=== PATIENT | male | born 1955 | race Caucasian/White ===

== ENCOUNTER → 2017-12-16 | Outpatient (CLI) | payer OTHER ==
[~2017-12-16] MED LIST: CARV6.25 PO; COLCRYS0.6 MG PO; COMBIVENT RESPIM4 GM INH; Cleocin HCl150 MG PO; FURO20 PO; HYDACE10B PO; HYDACE5 PO; HYDR1TAB94; HYDROCODONE-IB1 EAC1 PO; LEVO750 PO; LOSA50; LOSARTAN POTAS100 MG PO; MICONAZOLE TOP; OMEP10ER PO; OMEP20ER PO; ONE DAILY FOR1 EAC1 PO; OXAP600 PO; POTCHL10ER PO; PRAM.125 PO; PROACE100; PROACE100 PO; PRODEXEL PO; Percocet 5-3251 EACH PO; TRAM50 PO; Zithromax250 MG PO
[2017-12-16 18:25] LABS: BASOPHILS ABSOLUTE AUTO 0.03 K/mm3 (0.00-0.23); BASOPHILS PERCENT AUTO 0 % (0-2); EOSINOPHILS ABSOLUTE AUTO 0.02 K/mm3 (0.00-0.68); EOSINOPHILS PERCENT AUTO 0 % (0-6); Hematocrit 42.3 % (37.0-53.0); Hemoglobin 13.9 g/dL (13.5-17.5); IMMATURE GRAN ABSOLUTE AUTO 0.05 K/mm3 (0.00-0.10); IMMATURE GRAN PERCENT AUTO 1 % (0-1); LYMPHOCYTES PERCENT AUTO 11 % (21-46); MONOCYTES ABSOLUTE AUTO 0.42 K/mm3 (0.16-1.47); MONOCYTES PERCENT AUTO 4 % (4-13); Mean Corpuscular HGB 28.2 pg (26.0-34.0); Mean Corpuscular HGB Conc 32.9 g/dL (31.5-36.5); Mean Corpuscular Volume 86 fL (80-100); NEUTROPHILS ABSOLUTE AUTO 8.08 K/mm3 (1.96-9.15); NEUTROPHILS PERCENT AUTO 83 % (41-73); Platelet Count 298 K/mm3 (150-400); RDW Coefficient Variation 15.4 % (11.7-14.2); Red Blood Cell Count 4.93 M/mm3 (4.30-5.90)
[2017-12-16 18:38] LABS: Alanine Aminotransfer (ALT/SGP 37 U/L (12-78); Albumin, Blood 3.5 g/dL (3.4-5.0); Albumin/Globulin Ratio 0.8 (0.8-1.8); Alk Phos 115 U/L (40-126); Anion Gap 9 mmol/L (6-16); Aspartate Aminotrans (AST/SGOT 24 U/L (12-37); Bilirubin, Total 0.4 mg/dL (0.1-1.0); Blood Urea Nitrogen 18 mg/dL (8-24); Bun/Creatinine Ratio 17.6 (12.0-20.0); CO2, Blood 28 mmol/L (21-32); Calcium, Blood 9.3 mg/dL (8.5-10.1); Chloride, Blood 102 mmol/L (98-108); Creatinine, Blood 1.02 mg/dL (0.60-1.20); Globulin, Blood 4.2 g/dL (2.2-4.0); Glomerular Filtration Rate >60 (60-); Glucose, Blood 161 mg/dL (70-99); Sodium, Blood 139 mmol/L (136-145); Total Protein, Blood 7.7 g/dL (6.4-8.2)
== END ==
LOC: LAB SHORT 18:22 → LAB EV 18:22
PROVIDERS: Family Medicine
DX: I50.9 Heart failure, unspecified (principal)
CPT/HCPCS: 80053; 83880; 85025

== ENCOUNTER → 2018-02-18 | Outpatient (CLI) | payer OTHER ==
[2018-02-18 17:35] LABS: BASOPHILS ABSOLUTE AUTO 0.06 K/mm3 (0.00-0.23); BASOPHILS PERCENT AUTO 1 % (0-2); EOSINOPHILS PERCENT AUTO 3 % (0-6); Hematocrit 43.8 % (37.0-53.0); Hemoglobin 14.5 g/dL (13.5-17.5); IMMATURE GRAN ABSOLUTE AUTO 0.04 K/mm3 (0.00-0.10); IMMATURE GRAN PERCENT AUTO 0 % (0-1); LYMPHOCYTES ABSOLUTE AUTO 2.86 K/mm3 (0.84-5.20); LYMPHOCYTES PERCENT AUTO 24 % (21-46); MONOCYTES ABSOLUTE AUTO 1.06 K/mm3 (0.16-1.47); MONOCYTES PERCENT AUTO 9 % (4-13); Mean Corpuscular HGB 28.3 pg (26.0-34.0); Mean Corpuscular HGB Conc 33.1 g/dL (31.5-36.5); Mean Corpuscular Volume 85 fL (80-100); Mean Platelet Volume 10.5 fL (9.1-12.4); NEUTROPHILS ABSOLUTE AUTO 7.73 K/mm3 (1.96-9.15); NEUTROPHILS PERCENT AUTO 64 % (41-73); Platelet Count 318 K/mm3 (150-400); RDW Coefficient Variation 15.8 % (11.7-14.2); RDW Standard Deviation 49.1 fL (35.1-46.3); Red Blood Cell Count 5.13 M/mm3 (4.30-5.90); White Blood Cell Count 12.05 K/mm3 (4.00-11.30)
[2018-02-18 17:50] LABS: Alanine Aminotransfer (ALT/SGP 25 U/L (12-78); Albumin, Blood 3.6 g/dL (3.4-5.0); Albumin/Globulin Ratio 0.8 (0.8-1.8); Alk Phos 112 U/L (40-126); Anion Gap 13 mmol/L (6-16); Aspartate Aminotrans (AST/SGOT 26 U/L (12-37); Bilirubin, Total 0.4 mg/dL (0.1-1.0); Blood Urea Nitrogen 25 mg/dL (8-24); CO2, Blood 28 mmol/L (21-32); CPK Creatine Kinase 181 U/L (39-308); Calcium, Blood 9.4 mg/dL (8.5-10.1); Chloride, Blood 99 mmol/L (98-108); Creatinine, Blood 1.79 mg/dL (0.60-1.20); Globulin, Blood 4.7 g/dL (2.2-4.0); Glomerular Filtration Rate 39 (60-); Glucose, Blood 87 mg/dL (70-99); Magnesium, Blood 1.4 mg/dL (1.6-2.4); Potassium, Blood 4.3 mmol/L (3.5-5.5); Sodium, Blood 140 mmol/L (136-145); Total Protein, Blood 8.3 g/dL (6.4-8.2)
[2018-02-18 17:51] LABS: Troponin I <0.017 ng/mL (0.000-0.040)
== END ==
LOC: LAB SHORT 17:31 → LAB EV 17:31
PROVIDERS: Physician Assistant Medical
DX: R07.9 Chest pain, unspecified (principal); R25.2 Cramp and spasm
CPT/HCPCS: 80053; 82550; 83735; 83880; 84484; 85025

== ENCOUNTER 2019-02-13 12:54 | Emergency (ER) | payer OTHER ==
[~2019-02-13] VITALS: Ht 208.3 cm; Wt 152.9 kg
[2019-02-13 13:30] LABS: BASOPHILS ABSOLUTE AUTO 0.04 K/mm3 (0.00-0.23); BASOPHILS PERCENT AUTO 0 % (0-2); EOSINOPHILS ABSOLUTE AUTO 0.23 K/mm3 (0.00-0.68); EOSINOPHILS PERCENT AUTO 2 % (0-6); Hematocrit 43.3 % (37.0-53.0); Hemoglobin 14.1 g/dL (13.5-17.5); IMMATURE GRAN ABSOLUTE AUTO 0.07 K/mm3 (0.00-0.10); IMMATURE GRAN PERCENT AUTO 1 % (0-1); LYMPHOCYTES ABSOLUTE AUTO 1.86 K/mm3 (0.84-5.20); LYMPHOCYTES PERCENT AUTO 16 % (21-46); MONOCYTES ABSOLUTE AUTO 0.63 K/mm3 (0.16-1.47); MONOCYTES PERCENT AUTO 5 % (4-13); Mean Corpuscular HGB Conc 32.6 g/dL (31.5-36.5); Mean Corpuscular Volume 92 fL (80-100); Mean Platelet Volume 10.5 fL (9.1-12.4); NEUTROPHILS ABSOLUTE AUTO 8.97 K/mm3 (1.96-9.15); NEUTROPHILS PERCENT AUTO 76 % (41-73); Platelet Count 263 K/mm3 (150-400); RDW Coefficient Variation 14.7 % (11.7-14.2); RDW Standard Deviation 50.3 fL (35.1-46.3)
[2019-02-13 14:15] LABS: Alanine Aminotransfer (ALT/SGP 57 U/L (12-78); Albumin, Blood 3.1 g/dL (3.4-5.0); Albumin/Globulin Ratio 0.6 (0.8-1.8); Alk Phos 167 U/L (50-136); Anion Gap 7 mmol/L (6-16); Aspartate Aminotrans (AST/SGOT 79 U/L (12-37); Bilirubin, Total 0.7 mg/dL (0.1-1.0); Blood Urea Nitrogen 17 mg/dL (8-24); Bun/Creatinine Ratio 18.7 (12.0-20.0); CO2, Blood 28 mmol/L (21-32); Chloride, Blood 103 mmol/L (98-108); Creatinine, Blood 0.91 mg/dL (0.60-1.20); Glomerular Filtration Rate >60 (60-); Glucose, Blood 132 mg/dL (70-99); Potassium, Blood 3.9 mmol/L (3.5-5.5); Sodium, Blood 138 mmol/L (136-145); Total Protein, Blood 8.1 g/dL (6.4-8.2)
[2019-02-13] MEDS ORDERED: PROM25 PO (14:40)
[2019-02-13] MEDS ORDERED: Norco 5-325 Ta1 EACH PO (14:40)
[2019-02-17] MEDS ORDERED: [UNRECOGNIZED DRUG - CODE] PO (16:29)
[2019-02-17] MEDS ORDERED: FURO20 PO (16:32)
[2019-02-17] MEDS ORDERED: METO100ER PO (16:32)
[2019-02-17] MEDS ORDERED: SERT50 PO (16:32)
[2019-02-17] MEDS ORDERED: MAGNESIUM PO (16:33)
[2019-02-17] MEDS ORDERED: OMEPRAZOLE20 MG PO (16:33)
[2019-02-17] MEDS ORDERED: ALLO300 PO (16:34)
[2019-02-17] MEDS ORDERED: PROM25 PO (16:36)
== END 2019-02-13 14:57 | disposition home or self-care (01) ==
LOC: ER 12:54
PROVIDERS: Physician Assistant
DX: K29.70 Gastritis, unspecified, without bleeding (principal); K27.9 Peptic ulcer, site unspecified, unspecified as acute or chronic, without hemorrhage or perforation; K21.9 Gastro-esophageal reflux disease without esophagitis; I10 Essential (primary) hypertension; E66.9 Obesity, unspecified; Z87.891 Personal history of nicotine dependence
CPT/HCPCS: 36415; 74177; 80053; 83690; 85025; 99284-25; Q9967

== ENCOUNTER 2019-02-24 13:56 | Inpatient (IN) | payer OTHER ==
[~2019-02-24] VITALS: Ht 177.8 cm; Wt 152.3 kg
[~2019-02-24 13:56] MED LIST changes: +ALLO300 PT; +MAGOXI400 PO; +METO100ER PO; +Norco 5-325 Ta1 EACH PO; +OMEPRAZOLE20 MG PO; +PROM25 PO; +SERT50 PO; +[UNRECOGNIZED DRUG - CODE] PO
[2019-02-24 14:48] LABS: BASOPHILS ABSOLUTE AUTO 0.04 K/mm3 (0.00-0.23); BASOPHILS PERCENT AUTO 0 % (0-2); EOSINOPHILS ABSOLUTE AUTO 0.15 K/mm3 (0.00-0.68); EOSINOPHILS PERCENT AUTO 2 % (0-6); Hematocrit 41.8 % (37.0-53.0); Hemoglobin 13.8 g/dL (13.5-17.5); IMMATURE GRAN ABSOLUTE AUTO 0.03 K/mm3 (0.00-0.10); IMMATURE GRAN PERCENT AUTO 0 % (0-1); LYMPHOCYTES ABSOLUTE AUTO 1.83 K/mm3 (0.84-5.20); LYMPHOCYTES PERCENT AUTO 18 % (21-46); MONOCYTES ABSOLUTE AUTO 0.78 K/mm3 (0.16-1.47); MONOCYTES PERCENT AUTO 8 % (4-13); Mean Corpuscular HGB 30.5 pg (26.0-34.0); Mean Corpuscular Volume 93 fL (80-100); Mean Platelet Volume 10.6 fL (9.1-12.4); NEUTROPHILS ABSOLUTE AUTO 7.09 K/mm3 (1.96-9.15); NEUTROPHILS PERCENT AUTO 72 % (41-73); Platelet Count 243 K/mm3 (150-400); RDW Coefficient Variation 14.8 % (11.7-14.2); RDW Standard Deviation 50.7 fL (35.1-46.3); Red Blood Cell Count 4.52 M/mm3 (4.30-5.90); White Blood Cell Count 9.92 K/mm3 (4.00-11.30)
[2019-02-24 15:07] LABS: Anion Gap 8 mmol/L (6-16); Blood Urea Nitrogen 14 mg/dL (8-24); Bun/Creatinine Ratio 16.5 (12.0-20.0); CO2, Blood 23 mmol/L (21-32); Calcium, Blood 9.1 mg/dL (8.5-10.1); Chloride, Blood 103 mmol/L (98-108); Creatinine, Blood 0.85 mg/dL (0.60-1.20); Glomerular Filtration Rate >60 (60-); Glucose, Blood 119 mg/dL (70-99); Potassium, Blood 4.1 mmol/L (3.5-5.5); Sodium, Blood 134 mmol/L (136-145)
--- NOTE | 2019-02-24 15:23 | NUR ---
pt was sleeping wakes to sound of voice, denies any needs, will continue to monitor
[2019-02-24] MEDS ORDERED: Norco 10-325 T1 EACH PO (17:40)
[2019-02-24] MEDS ORDERED: SPIR25 PO (17:42)
[2019-02-24] MEDS ORDERED: PANT40 PO (17:44)
[2019-02-24] MEDS ORDERED: TORSE20 PO (17:49)
[2019-02-24] MEDS ORDERED: COLCHICINE0.6 MG PO (17:50)
[2019-02-24 22:11] LABS: Adenovirus Not Detected (NOT DETECT); Bordetella pertussis Not Detected (NOT DETECT); Chlamydophila pneumoniae Not Detected (NOT DETECT); Coronavirus 229E Not Detected (NOT DETECT); Coronavirus HKU1 Not Detected (NOT DETECT); Coronavirus NL63 Not Detected (NOT DETECT); Coronavirus OC43 Not Detected (NOT DETECT); Human Metapneumovirus Not Detected (NOT DETECT); Human Rhinovirus/Enterovirus Not Detected (NOT DETECT); Influenza A Not Detected (NOT DETECT); Influenza A/2009-H1 Not Detected (NOT DETECT); Influenza A/H1 Not Detected (NOT DETECT); Influenza A/H3 Not Detected (NOT DETECT); Influenza B Not Detected (NOT DETECT); Mycoplasma pneumoniae Not Detected (NOT DETECT); Parainfluenza Virus 1 Not Detected (NOT DETECT); Parainfluenza Virus 2 Not Detected (NOT DETECT); Parainfluenza Virus 3 Not Detected (NOT DETECT); Parainfluenza Virus 4 Not Detected (NOT DETECT); Respiratory Syncytial Virus Not Detected (NOT DETECT)
[2019-02-25 05:42] LABS: BASOPHILS ABSOLUTE AUTO 0.04 K/mm3 (0.00-0.23); BASOPHILS PERCENT AUTO 1 % (0-2); EOSINOPHILS ABSOLUTE AUTO 0.19 K/mm3 (0.00-0.68); EOSINOPHILS PERCENT AUTO 3 % (0-6); Hematocrit 37.5 % (37.0-53.0); Hemoglobin 11.9 g/dL (13.5-17.5); IMMATURE GRAN ABSOLUTE AUTO 0.02 K/mm3 (0.00-0.10); IMMATURE GRAN PERCENT AUTO 0 % (0-1); LYMPHOCYTES ABSOLUTE AUTO 1.27 K/mm3 (0.84-5.20); LYMPHOCYTES PERCENT AUTO 16 % (21-46); MONOCYTES ABSOLUTE AUTO 0.63 K/mm3 (0.16-1.47); MONOCYTES PERCENT AUTO 8 % (4-13); Mean Corpuscular HGB 29.9 pg (26.0-34.0); Mean Corpuscular HGB Conc 31.7 g/dL (31.5-36.5); Mean Corpuscular Volume 94 fL (80-100); Mean Platelet Volume 10.9 fL (9.1-12.4); NEUTROPHILS ABSOLUTE AUTO 5.59 K/mm3 (1.96-9.15); NEUTROPHILS PERCENT AUTO 72 % (41-73); Platelet Count 198 K/mm3 (150-400); RDW Coefficient Variation 14.9 % (11.7-14.2); RDW Standard Deviation 51.8 fL (35.1-46.3); Red Blood Cell Count 3.98 M/mm3 (4.30-5.90); White Blood Cell Count 7.74 K/mm3 (4.00-11.30)
[2019-02-25 06:05] LABS: Alanine Aminotransfer (ALT/SGP 47 U/L (12-78); Albumin, Blood 2.6 g/dL (3.4-5.0); Albumin/Globulin Ratio 0.6 (0.8-1.8); Alk Phos 147 U/L (50-136); Anion Gap 7 mmol/L (6-16); Aspartate Aminotrans (AST/SGOT 61 U/L (12-37); Bilirubin, Total 0.7 mg/dL (0.1-1.0); Blood Urea Nitrogen 11 mg/dL (8-24); Bun/Creatinine Ratio 13.8 (12.0-20.0); CO2, Blood 25 mmol/L (21-32); Calcium, Blood 8.5 mg/dL (8.5-10.1); Chloride, Blood 105 mmol/L (98-108); Globulin, Blood 4.5 g/dL (2.2-4.0); Glomerular Filtration Rate >60 (60-); Glucose, Blood 127 mg/dL (70-99); Potassium, Blood 4.2 mmol/L (3.5-5.5); Sodium, Blood 137 mmol/L (136-145); Total Protein, Blood 7.1 g/dL (6.4-8.2)
--- NOTE | 2019-02-25 06:31 | NUR ---
64 Y/O MORBID OBESE MALE RESTED COMFORTABLY IN BED ALL EVENING. PTS RIGHT EYE SCLERA RED WITH SURROUNDING SKIN AROUND ORBITAL RED AND IRRIATED. PTS EYE DRAINING GREEN COLORED SUBSTANCE WITH EYELID CLEANSED WITH SALINE SOAKED TISSUE AND TEAR EYE DROPS APPLIED ORDERED. PT VOICED HE HAVING POOR VISION WITH RIGHT EYE AT MOMENT. PT WAS ABLE TO TURN NECK FROM SIDE TO SIDE (VOICED DIFFICULTY PRIOR TO HOSPITALIZATION). PT WORE BIPAP 3/4 NIGHT WITH SATS AVERAGING 91%. PT MEDICATED WITH NORCO 10/325MG PO X1 FOR RIGHT EYE PAIN RATED 6/10 WITH RELIEF FELT. PT DENIES PAIN. PTS BED LOW POSITION, CALL LIGHT AT SIDE.
--- NOTE | 2019-02-25 19:15 | NUR ---
SHIFT SUMMARY PT SLEEPING MOST OF DAY. DIFFICULT TO ROUSE BUT WOULD AND AFTER A MOMENT WAS ALERT AND APPROPRIATE. CPAP IN ROOM BUT PT COMPLAINED WHEN HE WAS AWAKE THAT IT DIDN'T FIT RIGHT. RT CALLED AND ITEMS CORRECTED. WAS TOLD BLUNTLY THAT HE NEEDED TO USE CPAP EVERY TIME HE GOES TO SLEEP NOT JUST WHEN HE WANTED TO BECAUSE HIS OXIMETRY DROPS TO 50-60'S. AT BEDSIDE MOST OF DAY. UP TO BATHROOM INDEPENDENTLY. TISSUE AROUND R EYE SWOLLEN AND RED AND TENDER TO TOUCH. COMPRESSES APPLIED FOR COMFORT ON AND OFF.
--- NOTE | 2019-02-26 05:46 | NUR ---
SHIFT SUMMARY PT SLEPT WELL THIS EVENING BUT WAS NOT OVERLY LETHARGIC OR DIFFICULT TO WAKE UP. USED CPAP THROUGHOUT THE NIGHT WHEN SLEEPING. REPORTED THAT MASK WAS FITTING MUCH BETTER AND APPEARED EAGER TO CONTINUE COMPLIANCE WITH IT. CONTINUOUS OX ON THROUGHOUT THE NIGHT WITH NO ALARMING. O2 SATS REMAINED IN THE HIGH 90'S. R EYE CONTINUED TO BE SWOLLEN AND RED. PT WAS ABLE TO OPEN EYE BUT NOT COMPLETELY. MODERATE YELLOWISH DISCHARGE. PT USED COLD COMPRESSES FROM COMFORT. MEDICATED X 1 W/ 1 TAB NORCO. VITAL SIGNS STABLE. WILL CONTINUE TO MONITOR.
--- NOTE | 2019-02-26 10:17 | NUR ---
PATIENT WAS OFFERED A SHOWER AND HE DECLINED HE WANTS TO WAIT UNTIL HIS SHOWS UP THIS AFTERNOON. WILL OFFER AGAIN IF I SEE HIS PRESENT.
--- NOTE | 2019-02-26 19:10 | NUR ---
shift summary pt independent in room. at bedside this afternoon. used cpap more consistantly today than yesterday. more awake as well. swelling to eye less than yesterday but still remains very red.
--- NOTE | 2019-02-27 04:16 | NUR ---
SHIFT SUMMARY NO ACUTE CHANGES THIS SHIFT. PT'S EYE CONTINUES TO BE RED AND SWOLLEN BUT SHOWING GOOD IMPROVING. PT USING COLD COMPRESSES FOR COMFORT. MEDICATED X 1 W/ 1 TAB NORCO. PT REMOVES CPAP AT TIMES WHEN SLEEPING REPORTING THAT HE DOES NOT REALIZE HE IS REMOVING IT. REPLACED WHEN NOTICED. CONT BIOX ON AND O2 SATS REMAINED GOOD THROUGHOUT THE NIGHT. VSS. PT HOPING TO RETURN HOME TODAY. WILL CONTINUE TO MONITOR.
[2019-02-27 11:35] LABS: Vancomycin, Trough 15.2 ug/mL (5.0-10.0)
[2019-02-27] MEDS ORDERED: PROBIOTIC & AC1 EACH PO (14:34)
[2019-02-27] MEDS ORDERED: METO50ER PO (14:35)
[2019-02-27] MEDS ORDERED: Augmentin 875-1 EACH PO (14:35)
--- NOTE | 2019-02-27 15:17 | NUR ---
DISCHARGE NOTE PT'S DISCHARGE PRESCRIPTIONS FAXED TO PREFERED PHARMACY. PT'S IV DC'D WNL. PT DRESSED IN PERSONAL CLOTHES. PERSONAL BELONGINGS GATHERED AND PROVIDED TO PT. PT GIVEN HARDCOPY AND VERBAL INSTRUCTIONS FOR DISCHARGE RE: DIAGNOSES, MEDICATIONS, FOLLOW UP APPOINTMENTS. PT AND FAMILY HAD NO FURTHER QUESTIONS. PT ESCORTED OUT VIA WHEELCHAIR ACCOMPANIED BY CASTING WHEEL OPERATOR TO PERSONAL VEHICLE.
== END 2019-02-27 15:13 | disposition home or self-care (01) | DRG 602 ==
LOC: ER 13:56 → MEDS 13:57 → EDPENDDIS 02-27 11:34 → ENPENDDIS 02-27 11:34 → MEDS 02-27 15:13
PROVIDERS: Emergency Medicine; Nurse Practitioner Acute Care; Pharmacist; ADMIT Internal Medicine
DX: L03.213 Periorbital cellulitis (principal); G92 Toxic encephalopathy; R65.10 Systemic inflammatory response syndrome (SIRS) of non-infectious origin without acute organ dysfunction; F11.20 Opioid dependence, uncomplicated; Z68.42 Body mass index [BMI] 45.0-49.9, adult; E66.01 Morbid (severe) obesity due to excess calories; I10 Essential (primary) hypertension; K21.9 Gastro-esophageal reflux disease without esophagitis; F32.9 Major depressive disorder, single episode, unspecified; G47.33 Obstructive sleep apnea (adult) (pediatric); M10.9 Gout, unspecified; J45.909 Unspecified asthma, uncomplicated; F10.10 Alcohol abuse, uncomplicated; Z87.891 Personal history of nicotine dependence
CPT/HCPCS: 36415; 70450; 70481; 80048; 80053; 80202; 83605; 83880; 85025; 87486; 87581; 87633; 87798; 94660; 94762; 96361; 96361-59; 96365-59; 96366-59; 96367-59; 96372; 96375-59; 96376; 99284-25; A9270-GY; G0378; J1170; J1650; J2543; J3370; J7030; J7050; J7120; Q9967

== ENCOUNTER 2019-04-03 10:12 | Day surgery (SDC) | payer OTHER ==
[~2019-04-03] VITALS: Ht 177.8 cm; Wt 148.3 kg
[~2019-04-03 10:12] MED LIST changes: +Augmentin 875-1 EACH PO; +COLCHICINE0.6 MG PO; +METO50ER PO; +Norco 10-325 T1 EACH PO; +PANT40 PO; +PROBIOTIC & AC1 EACH PO; +SPIR25 PO; +TORSE20 PO
--- NOTE | 2019-04-03 10:56 | NUR ---
INTO SDS VIA WHEELCHAIR.PLACED IN CONTACT ISOLATION FOR HISTORY OF MRSA. PT SOB WITH MINIMAL EXERTION. LUNGS DIMINISHED IN BASES. SATS>90% ON RA. DUO NEB GIVEN.HISTORY AND ALLERGIES REVIEWED. PT IS POOR HISTORIAN. UNAWARE OF THE MEDICATIONS THAT HE IS TAKING-STATES "I DON'T KNOW, WHATEVER IS ON THAT LIST IS WHAT I'M TAKING." NPO STATUS CONFIRMED.RIDE HOME AFTER PROCEDURE CONFIRMED.
--- NOTE | 2019-04-03 11:36 | NUR ---
04/03/19 1136 Moy Seals Bite Block Placed3-LEAD EKG REVIEWED WITH PHYSICIAN PRIOR TO START OF PROCEDURE.Patient to ENDO 1History, Chart, Medications and Allergies reviewed before start of procedure.MONITOR INTACT WITH CONTINUOUS PULSE OXIMETRY AND INTERMITTENT BP.O2 VIA N/C INTACT THROUGHOUT SEDATION/PROCEDURE.See Anesthesia record
--- NOTE | 2019-04-03 12:23 | NUR ---
Discharge instructions reviewed with patient. Patient verbalizes understanding. Copy given to patient to take home. Discharged via wheelchair to private car for ride home.
== END 2019-04-03 22:44 | disposition home or self-care (01) ==
LOC: ORSCMMR 10:12 → ORD 12:00 → ORSCMMR 12:00
PROVIDERS: Internal Medicine Gastroenterology
PROC: 0DB68ZX Excision of Stomach, Via Natural or Artificial Opening Endoscopic, Diagnostic (ICD-10-PCS; principal; 2019-04-03 12:00)
DX: K21.9 Gastro-esophageal reflux disease without esophagitis (principal); R11.2 Nausea with vomiting, unspecified; K29.70 Gastritis, unspecified, without bleeding; K44.9 Diaphragmatic hernia without obstruction or gangrene; I10 Essential (primary) hypertension; J45.909 Unspecified asthma, uncomplicated; G47.33 Obstructive sleep apnea (adult) (pediatric); E66.01 Morbid (severe) obesity due to excess calories; Z68.42 Body mass index [BMI] 45.0-49.9, adult; Z79.899 Other long term (current) drug therapy
CPT/HCPCS: 88305; 88342; J2250; J2704; J7120

== ENCOUNTER → 2019-07-08 | Outpatient (CLI) | payer OTHER | END | disposition home or self-care (01) | LOC: LAB 15:30 → LAB SHORT 15:30 | DX: L08.9 Local infection of the skin and subcutaneous tissue, unspecified (principal) | CPT/HCPCS: 87070; 87077; 87147; 87186; 87205 ==

== ENCOUNTER 2019-09-04 06:33 | Day surgery (SDC) | payer OTHER ==
[~2019-09-04] VITALS: Ht 175.3 cm; Wt 149.0 kg
[~2019-09-04 06:33] MED LIST changes: +ALLO300 PO; +CLIN300 PO; +GABA300 PO; +METO10 PO; +Norco 7.5-3251 EACH PO; +PENNSAID2 GM TOP; +SUCR1 PO
--- NOTE | 2019-09-04 08:25 | NUR ---
09/04/19 0860 Caitlyn Vallejo History, Chart, Medications and Allergies reviewed before start of procedure. MAC CASE WITH DR. MARQUEZ IN ENDO ROOM 1 SEE ANETHESIA RECORD FOR CARE
--- NOTE | 2019-09-04 09:26 | NUR ---
Patient up to Ambulate independently. Gait steady. Discharge instructions reviewed with patient. Patient verbalizes understanding. Copy given to patient to take home. Discharged via wheelchair to private car for ride home WITH SPOUSE AND DAUGHTER
== END 2019-09-04 23:07 | disposition home or self-care (01) ==
LOC: ORSCMMR 06:33 → ORD 08:00 → ORSCMMR 23:07
PROVIDERS: Internal Medicine Gastroenterology
PROC: 0DBL8ZX Excision of Transverse Colon, Via Natural or Artificial Opening Endoscopic, Diagnostic (ICD-10-PCS; principal; 2019-09-04 08:00)
PROC: 0DBK8ZX Excision of Ascending Colon, Via Natural or Artificial Opening Endoscopic, Diagnostic (ICD-10-PCS; principal; 2019-09-04 08:00)
DX: R10.9 Unspecified abdominal pain (principal); K62.5 Hemorrhage of anus and rectum; D12.3 Benign neoplasm of transverse colon; D12.2 Benign neoplasm of ascending colon; R11.2 Nausea with vomiting, unspecified; K57.30 Diverticulosis of large intestine without perforation or abscess without bleeding; K64.8 Other hemorrhoids; I10 Essential (primary) hypertension; K21.9 Gastro-esophageal reflux disease without esophagitis; J45.909 Unspecified asthma, uncomplicated; E66.01 Morbid (severe) obesity due to excess calories; Z68.43 Body mass index [BMI] 50.0-59.9, adult; G47.33 Obstructive sleep apnea (adult) (pediatric); Z79.899 Other long term (current) drug therapy
CPT/HCPCS: 87081; 88305; J2250; J2405; J2704; J7120

== ENCOUNTER → 2020-09-03 | Outpatient (CLI) | payer MEDICARE, OTHER | END | disposition home or self-care (01) | LOC: LAB SHORT 17:23 → LAB EV 17:23 | DX: L03.313 Cellulitis of chest wall (principal) | CPT/HCPCS: 87070; 87075; 87077; 87147; 87186; 87205 ==

== ENCOUNTER 2021-02-13 13:36 | Emergency (ER) | payer MEDICARE ==
[~2021-02-13] VITALS: Ht 177.8 cm; Wt 149.7 kg
[2021-02-13] MEDS ORDERED: CLIN150 PO (16:00)
== END 2021-02-13 16:26 | disposition home or self-care (01) ==
LOC: ER 13:36
DX: L02.411 Cutaneous abscess of right axilla (principal); L03.313 Cellulitis of chest wall; I10 Essential (primary) hypertension; Z79.899 Other long term (current) drug therapy
CPT/HCPCS: 10061; 99283-25

== ENCOUNTER 2021-09-01 12:16 | Day surgery (SDC) | payer MEDICARE ==
[~2021-09-01] VITALS: Ht 177.8 cm; Wt 148.5 kg
[~2021-09-01 12:16] MED LIST changes: +CLIN150 PO
--- NOTE | 2021-09-01 13:42 | NUR ---
09/01/21 1342 LUDMILA KING 3 ATTEMPTS AT IV. ATTEMPT 1 IN R FOREARM MISSED. ATTEMPT 2 IN R FOREARM INFILTRATED. ATTEMPT 3 IN L HAND SUCCESSFUL.
== END 2021-09-01 15:35 | disposition home or self-care (01) ==
LOC: ORSCSDS 12:16
PROVIDERS: Internal Medicine Gastroenterology
PROC: 0DB78ZX Excision of Stomach, Pylorus, Via Natural or Artificial Opening Endoscopic, Diagnostic (ICD-10-PCS; principal; 2021-09-01 14:30)
DX: K74.60 Unspecified cirrhosis of liver (principal); K76.6 Portal hypertension; K31.89 Other diseases of stomach and duodenum; Z13.810 Encounter for screening for upper gastrointestinal disorder; Z87.19 Personal history of other diseases of the digestive system; K21.9 Gastro-esophageal reflux disease without esophagitis; E11.9 Type 2 diabetes mellitus without complications; G47.33 Obstructive sleep apnea (adult) (pediatric); Z87.891 Personal history of nicotine dependence; Z79.899 Other long term (current) drug therapy; E66.01 Morbid (severe) obesity due to excess calories; Z68.43 Body mass index [BMI] 50.0-59.9, adult
CPT/HCPCS: 82947; 88305; 88342; J2001; J2704; J3010; J7120

== ENCOUNTER → 2022-01-06 | Outpatient (CLI) | payer MEDICARE ==
[2022-01-06 16:08] LABS: BASOPHILS ABSOLUTE AUTO 0.02 K/mm3 (0.00-0.23); BASOPHILS PERCENT AUTO 0 % (0-2); EOSINOPHILS ABSOLUTE AUTO 0.13 K/mm3 (0.00-0.68); EOSINOPHILS PERCENT AUTO 3 % (0-6); Hematocrit 31.2 % (37.0-53.0); Hemoglobin 10.4 g/dL (13.5-17.5); IMMATURE GRAN ABSOLUTE AUTO 0.01 K/mm3 (0.00-0.10); IMMATURE GRAN PERCENT AUTO 0 % (0-1); LYMPHOCYTES ABSOLUTE AUTO 0.98 K/mm3 (0.84-5.20); LYMPHOCYTES PERCENT AUTO 20 % (21-46); MONOCYTES ABSOLUTE AUTO 0.48 K/mm3 (0.16-1.47); MONOCYTES PERCENT AUTO 10 % (4-13); Mean Corpuscular HGB 29.9 pg (26.0-34.0); Mean Corpuscular HGB Conc 33.3 g/dL (31.5-36.5); Mean Corpuscular Volume 90 fL (80-100); Mean Platelet Volume 11.6 fL (9.1-12.4); NEUTROPHILS ABSOLUTE AUTO 3.28 K/mm3 (1.96-9.15); NEUTROPHILS PERCENT AUTO 67 % (41-73); Platelet Count 88 K/mm3 (150-400); RDW Coefficient Variation 17.8 % (11.7-14.2); RDW Standard Deviation 58.3 fL (35.1-46.3); Red Blood Cell Count 3.48 M/mm3 (4.30-5.90)
[2022-01-06 16:27] LABS: Alanine Aminotransfer (ALT/SGP 32 U/L (12-78); Albumin, Blood 2.7 g/dL (3.4-5.0); Albumin/Globulin Ratio 0.6 (0.8-1.8); Alk Phos 140 U/L (40-126); Anion Gap 7 mmol/L (6-16); Aspartate Aminotrans (AST/SGOT 43 U/L (12-37); Bilirubin, Total 1.2 mg/dL (0.1-1.0); Blood Urea Nitrogen 12 mg/dL (8-24); Bun/Creatinine Ratio 15.2 (12.0-20.0); CO2, Blood 25 mmol/L (21-32); Calcium, Blood 8.2 mg/dL (8.5-10.1); Chloride, Blood 107 mmol/L (98-108); Creatinine, Blood 0.79 mg/dL (0.60-1.20); Globulin, Blood 4.2 g/dL (2.2-4.0); Glomerular Filtration Rate >60 (60-); Glucose, Blood 143 mg/dL (70-99); Potassium, Blood 3.7 mmol/L (3.5-5.5); Sodium, Blood 139 mmol/L (136-145); Total Protein, Blood 6.9 g/dL (6.4-8.2)
[2022-01-06 16:50] LABS: Free Thyroxine 0.87 ng/dL (0.70-1.60); Thyroid Stimulating Hormone 2.131 uIU/mL (0.360-4.800)
[2022-01-06 17:21] LABS: International Normalized Ratio 1.16; Prothrombin Time Results 12.1 Sec (9.7-11.5)
== END ==
LOC: LAB SHORT 16:02
PROVIDERS: General Practice
DX: M79.89 Other specified soft tissue disorders (principal); R04.0 Epistaxis; R53.81 Other malaise
CPT/HCPCS: 80053; 83880; 84439; 84443; 85025; 85610; 85730

== ENCOUNTER → 2022-01-30 | Outpatient (CLI) | payer MEDICARE ==
[2022-01-30 17:56] LABS: Microalb/Creat Ratio UR, Rand 101.923 mg/g (0.000-30.000)
== END ==
LOC: LAB SHORT 13:00
PROVIDERS: Physician Assistant
DX: E11.9 Type 2 diabetes mellitus without complications (principal)
CPT/HCPCS: 82043; 82570

== ENCOUNTER → 2022-02-05 | Outpatient (CLI) | payer MEDICARE | END | disposition home or self-care (01) | LOC: PLD 07:23 → LAB 07:23 → LAB SHORT 07:23 | DX: R23.4 Changes in skin texture (principal); L40.9 Psoriasis, unspecified | CPT/HCPCS: 88305 ==

== ENCOUNTER → 2022-05-17 | Outpatient (CLI) | payer MEDICARE | END | disposition home or self-care (01) | LOC: PLD 14:09 → LAB SHORT 14:09 | DX: D48.5 Neoplasm of uncertain behavior of skin (principal) | CPT/HCPCS: 88304 ==

== ENCOUNTER 2023-10-24 18:42 | Emergency (ER) | payer MEDICARE ==
[~2023-10-24] VITALS: Ht 177.8 cm; Wt 152.9 kg
[2023-10-24] MEDS ORDERED: TRELEGY ELLIPT1 EAC1 IH (20:55)
[2023-10-24] MEDS ORDERED: Lisinopril2.5 MG PO (20:55)
[2023-10-24] MEDS ORDERED: KLOR-CON 1010 ME9 PO (20:56)
[2023-10-24] MEDS ORDERED: PREG200 PO (20:56)
[2023-10-24 23:31] LABS: BASOPHILS ABSOLUTE AUTO 0.04 K/mm3 (0.00-0.23); BASOPHILS PERCENT AUTO 1 % (0-2); EOSINOPHILS ABSOLUTE AUTO 0.17 K/mm3 (0.00-0.68); EOSINOPHILS PERCENT AUTO 2 % (0-6); Hematocrit 34.5 % (37.0-53.0); Hemoglobin 11.8 g/dL (13.5-17.5); IMMATURE GRAN ABSOLUTE AUTO 0.04 K/mm3 (0.00-0.10); IMMATURE GRAN PERCENT AUTO 1 % (0-1); LYMPHOCYTES ABSOLUTE AUTO 0.84 K/mm3 (0.84-5.20); LYMPHOCYTES PERCENT AUTO 10 % (21-46); MONOCYTES ABSOLUTE AUTO 0.52 K/mm3 (0.16-1.47); MONOCYTES PERCENT AUTO 7 % (4-13); Mean Corpuscular HGB 33.7 pg (26.0-34.0); Mean Corpuscular HGB Conc 34.2 g/dL (31.5-36.5); Mean Corpuscular Volume 99 fL (80-100); Mean Platelet Volume 12.7 fL (9.1-12.4); NEUTROPHILS ABSOLUTE AUTO 6.45 K/mm3 (1.96-9.15); NEUTROPHILS PERCENT AUTO 80 % (41-73); Platelet Count 56 K/mm3 (150-400); RDW Coefficient Variation 15.3 % (11.7-14.2); RDW Standard Deviation 55.1 fL (35.1-46.3); White Blood Cell Count 8.06 K/mm3 (4.00-11.30)
[2023-10-24 23:41] LABS: Albumin, Blood 3.1 g/dL (3.4-5.0); Albumin/Globulin Ratio 0.7 (0.8-1.8); Bilirubin, Total 1.4 mg/dL (0.1-1.0); Bun/Creatinine Ratio 23.9 (12.0-20.0); Calcium, Blood 8.8 mg/dL (8.5-10.1); Creatinine, Blood 1.09 mg/dL (0.60-1.20); Globulin, Blood 4.3 g/dL (2.2-4.0); Potassium, Blood 3.9 mmol/L (3.5-5.5); Total Protein, Blood 7.4 g/dL (6.4-8.2)
[2023-10-25] MEDS ORDERED: SULTRIDS PO (04:00)
[2023-10-25] MEDS ORDERED: CEPH500 PO (04:00)
[2023-10-25 04:10] VITALS: BP 124/49
[2023-10-26] MEDS ORDERED: ALLEGRA ALLERG180 MG PO (15:00)
== END 2023-10-25 04:09 | disposition home or self-care (01) ==
LOC: ER 18:42
PROVIDERS: Emergency Medicine
DX: L03.211 Cellulitis of face (principal); I10 Essential (primary) hypertension; M19.90 Unspecified osteoarthritis, unspecified site; M10.9 Gout, unspecified; G47.33 Obstructive sleep apnea (adult) (pediatric); J45.909 Unspecified asthma, uncomplicated; R73.03 Prediabetes; Z86.14 Personal history of Methicillin resistant Staphylococcus aureus infection; Z79.899 Other long term (current) drug therapy
CPT/HCPCS: 70470; 80053; 85025; 96365; 96375; 99284-25; A9270; J0696; J1885; Q9967

== ENCOUNTER 2023-10-26 11:59 | Emergency (ER) | payer MEDICARE ==
[~2023-10-26] VITALS: Ht 177.8 cm; Wt 149.7 kg
[~2023-10-26 11:59] MED LIST changes: +CEPH500 PO; +KLOR-CON 1010 ME9 PO; +Lisinopril2.5 MG PO; +PREG200 PO; +SULTRIDS PO; +TRELEGY ELLIPT1 EAC1 IH
[2023-10-26 12:35] LABS: BASOPHILS ABSOLUTE AUTO 0.02 K/mm3 (0.00-0.23); BASOPHILS PERCENT AUTO 0 % (0-2); EOSINOPHILS ABSOLUTE AUTO 0.09 K/mm3 (0.00-0.68); EOSINOPHILS PERCENT AUTO 1 % (0-6); Hematocrit 31.3 % (37.0-53.0); IMMATURE GRAN ABSOLUTE AUTO 0.03 K/mm3 (0.00-0.10); IMMATURE GRAN PERCENT AUTO 0 % (0-1); LYMPHOCYTES ABSOLUTE AUTO 0.97 K/mm3 (0.84-5.20); LYMPHOCYTES PERCENT AUTO 12 % (21-46); MONOCYTES ABSOLUTE AUTO 0.61 K/mm3 (0.16-1.47); MONOCYTES PERCENT AUTO 8 % (4-13); Mean Corpuscular HGB 33.6 pg (26.0-34.0); Mean Corpuscular HGB Conc 35.1 g/dL (31.5-36.5); Mean Corpuscular Volume 96 fL (80-100); Mean Platelet Volume 11.8 fL (9.1-12.4); NEUTROPHILS ABSOLUTE AUTO 6.29 K/mm3 (1.96-9.15); NEUTROPHILS PERCENT AUTO 79 % (41-73); Platelet Count 57 K/mm3 (150-400); RDW Coefficient Variation 15.1 % (11.7-14.2); RDW Standard Deviation 52.5 fL (35.1-46.3); Red Blood Cell Count 3.27 M/mm3 (4.30-5.90); White Blood Cell Count 8.01 K/mm3 (4.00-11.30)
[2023-10-26 12:59] LABS: Albumin, Blood 2.8 g/dL (3.4-5.0); Albumin/Globulin Ratio 0.7 (0.8-1.8); Bilirubin, Total 1.7 mg/dL (0.1-1.0); Bun/Creatinine Ratio 22.2 (12.0-20.0); C-REACTIVE PROTEIN, EXT RANGE 9.23 mg/dL (0.000-0.300); Creatinine, Blood 1.44 mg/dL (0.60-1.20); Globulin, Blood 4.1 g/dL (2.2-4.0); Potassium, Blood 3.8 mmol/L (3.5-5.5); Total Protein, Blood 6.9 g/dL (6.4-8.2)
[2023-10-26] MEDS ORDERED: ALLEGRA ALLERG180 MG PO (15:00)
[2023-10-26 15:20] VITALS: BP 133/69
== END 2023-10-26 15:30 | disposition home or self-care (01) ==
LOC: ER 11:59
PROVIDERS: Physician Assistant
DX: R60.0 Localized edema (principal); Z79.899 Other long term (current) drug therapy; I10 Essential (primary) hypertension; M19.90 Unspecified osteoarthritis, unspecified site; M10.9 Gout, unspecified; G47.33 Obstructive sleep apnea (adult) (pediatric)
CPT/HCPCS: 80053; 85025; 86140; 96365; 96375; 99283-25; J0696; J2405; J3010

== ENCOUNTER → 2025-01-06 | Outpatient (CLI) | payer OTHER ==
[~2025-01-06] MED LIST changes: +ALLEGRA ALLERG180 MG PO
== END ==
LOC: LAB 17:13 → LAB SHORT 17:13
DX: S81.801A Unspecified open wound, right lower leg, initial encounter (principal)
CPT/HCPCS: 87070; 87075; 87077; 87147; 87186; 87205

== ENCOUNTER 2025-01-11 02:00 | Day surgery (SDC) | payer OTHER | END 2025-01-11 23:19 | disposition home or self-care (01) | LOC: WOUND 02:00 | DX: E11.622 Type 2 diabetes mellitus with other skin ulcer (principal); L97.812 Non-pressure chronic ulcer of other part of right lower leg with fat layer exposed; E11.51 Type 2 diabetes mellitus with diabetic peripheral angiopathy without gangrene; I87.2 Venous insufficiency (chronic) (peripheral); I11.0 Hypertensive heart disease with heart failure; I50.32 Chronic diastolic (congestive) heart failure; J44.9 Chronic obstructive pulmonary disease, unspecified; K21.9 Gastro-esophageal reflux disease without esophagitis; K74.60 Unspecified cirrhosis of liver; Z87.891 Personal history of nicotine dependence | CPT/HCPCS: A6213; G0463 ==

== ENCOUNTER 2025-01-25 00:59 | Day surgery (SDC) | payer OTHER ==
[2025-01-25] MEDS ORDERED: FARXIGA10 MG PO (13:45)
[2025-01-25] MEDS ORDERED: Robaxin750 MG PO (13:46)
[2025-01-25] MEDS ORDERED: Isosorbide Mono30 MG PO (13:47)
[2025-01-25] MEDS ORDERED: ATOR40TA PO (13:48)
[2025-01-25] MEDS ORDERED: BUME2 PO (13:48)
[2025-01-25] MEDS ORDERED: OMEP20ER (13:49)
[2025-01-25] MEDS ORDERED: MONT10T PO (13:49)
== END 2025-01-25 23:00 | disposition home or self-care (01) ==
LOC: WOUND 00:59
DX: E11.622 Type 2 diabetes mellitus with other skin ulcer (principal); L97.812 Non-pressure chronic ulcer of other part of right lower leg with fat layer exposed; I87.2 Venous insufficiency (chronic) (peripheral); E11.51 Type 2 diabetes mellitus with diabetic peripheral angiopathy without gangrene; I50.32 Chronic diastolic (congestive) heart failure
CPT/HCPCS: G0463

== ENCOUNTER 2025-01-25 12:54 | Emergency (ER) | payer OTHER ==
[~2025-01-25] VITALS: Ht 177.8 cm; Wt 149.7 kg
[2025-01-25 13:44] LABS: BASOPHILS ABSOLUTE AUTO 0.01 K/mm3 (0.00-0.23); BASOPHILS PERCENT AUTO 0 % (0-2); EOSINOPHILS PERCENT AUTO 3 % (0-6); Hematocrit 32.3 % (37.0-53.0); Hemoglobin 10.1 g/dL (13.5-17.5); IMMATURE GRAN ABSOLUTE AUTO 0.01 K/mm3 (0.00-0.10); IMMATURE GRAN PERCENT AUTO 0 % (0-1); LYMPHOCYTES PERCENT AUTO 21 % (21-46); MONOCYTES PERCENT AUTO 5 % (4-13); Mean Corpuscular HGB 29.6 pg (26.0-34.0); Mean Corpuscular HGB Conc 31.3 g/dL (31.5-36.5); Mean Corpuscular Volume 95 fL (80-100); Mean Platelet Volume 11.5 fL (9.1-12.4); NEUTROPHILS ABSOLUTE AUTO 2.71 K/mm3 (1.96-9.15); NEUTROPHILS PERCENT AUTO 71 % (41-73); RDW Coefficient Variation 16.9 % (11.7-14.2); RDW Standard Deviation 58.8 fL (35.1-46.3); Red Blood Cell Count 3.41 M/mm3 (4.30-5.90); White Blood Cell Count 3.83 K/mm3 (4.00-11.30)
[2025-01-25] MEDS ORDERED: FARXIGA10 MG PO (13:45)
[2025-01-25] MEDS ORDERED: Robaxin750 MG PO (13:46)
[2025-01-25] MEDS ORDERED: Isosorbide Mono30 MG PO (13:47)
[2025-01-25] MEDS ORDERED: ATOR40TA PO (13:48)
[2025-01-25] MEDS ORDERED: BUME2 PO (13:48)
[2025-01-25 13:49] LABS: Platelet Count 49 K/mm3 (150-400)
[2025-01-25] MEDS ORDERED: OMEP20ER (13:49)
[2025-01-25] MEDS ORDERED: MONT10T PO (13:49)
[2025-01-25] MEDS ORDERED: NS 1,000 ML IV SCH (13:55)
[2025-01-25 14:05] LABS: Source, Urine Clean Catch
[2025-01-25 14:09] LABS: Albumin, Blood 2.8 g/dL (3.4-5.0); Albumin/Globulin Ratio 0.6 (0.8-1.8); Bilirubin, Total 1.1 mg/dL (0.1-1.0); Bun/Creatinine Ratio 19.9 (12.0-20.0); Calcium, Blood 8.4 mg/dL (8.5-10.1); Creatinine, Blood 1.61 mg/dL (0.60-1.20); Globulin, Blood 4.7 g/dL (2.2-4.0); Potassium, Blood 5.2 mmol/L (3.5-5.5); Total Protein, Blood 7.5 g/dL (6.4-8.2)
[2025-01-25 14:11] LABS: Appearance, Urine Clear (Clear); Bilirubin, Urine Neg (Neg); Blood, Urine 5+ (Neg); Color, Urine Yellow (P-Yellow); Glucose Qualitative, Urine Neg (Neg); Ketones, Urine Neg (Neg); Leukocyte Esterase, Urine 1+ (Neg); Nitrite, Urine Neg (Neg); Protein, Urine Neg (Neg); Specific Gravity, Urine 1.015 (1.003-1.022); Urobilinogen, Urine NORM (Normal)
[2025-01-25 14:24] LABS: Bacteria Many /hpf; Squamous Epithelial Cells Rare /hpf (Few)
[2025-01-25 15:00] VITALS: BP 102/46
== END 2025-01-25 17:00 | disposition home or self-care (01) ==
LOC: ER 12:54
PROVIDERS: Physician Assistant
DX: E86.0 Dehydration (principal); I95.89 Other hypotension; K76.9 Liver disease, unspecified; I10 Essential (primary) hypertension; M10.9 Gout, unspecified; G47.33 Obstructive sleep apnea (adult) (pediatric); J45.909 Unspecified asthma, uncomplicated; R73.03 Prediabetes; Z79.51 Long term (current) use of inhaled steroids; Z79.899 Other long term (current) drug therapy
CPT/HCPCS: 71046; 80053; 81001; 83690; 85025; 87086; 93005; 93010; 99285-25; G0463; J7030

== ENCOUNTER 2025-02-04 14:16 | Inpatient (IN) | payer OTHER ==
[~2025-02-04] VITALS: Ht 177.8 cm; Wt 149.7 kg
[~2025-02-04 14:16] MED LIST changes: +ATOR40TA PO; +BUME2 PO; +FARXIGA10 MG PO; +Isosorbide Mono30 MG PO; +MONT10T PO; +Robaxin750 MG PO
[2025-02-04 15:15] LABS: BASOPHILS ABSOLUTE AUTO 0.01 K/mm3 (0.00-0.23); BASOPHILS PERCENT AUTO 0 % (0-2); EOSINOPHILS ABSOLUTE AUTO 0.07 K/mm3 (0.00-0.68); EOSINOPHILS PERCENT AUTO 3 % (0-6); Hematocrit 27.3 % (37.0-53.0); Hemoglobin 8.9 g/dL (13.5-17.5); IMMATURE GRAN ABSOLUTE AUTO 0.01 K/mm3 (0.00-0.10); IMMATURE GRAN PERCENT AUTO 0 % (0-1); LYMPHOCYTES ABSOLUTE AUTO 0.59 K/mm3 (0.84-5.20); LYMPHOCYTES PERCENT AUTO 24 % (21-46); MONOCYTES PERCENT AUTO 8 % (4-13); Mean Corpuscular HGB 30.3 pg (26.0-34.0); Mean Corpuscular HGB Conc 32.6 g/dL (31.5-36.5); Mean Corpuscular Volume 93 fL (80-100); Mean Platelet Volume 12.8 fL (9.1-12.4); NEUTROPHILS ABSOLUTE AUTO 1.55 K/mm3 (1.96-9.15); NEUTROPHILS PERCENT AUTO 64 % (41-73); RDW Coefficient Variation 17.8 % (11.7-14.2); Red Blood Cell Count 2.94 M/mm3 (4.30-5.90); White Blood Cell Count 2.43 K/mm3 (4.00-11.30)
[2025-02-04 15:26] LABS: Platelet Count 32 K/mm3 (150-400)
[2025-02-04 15:31] LABS: International Normalized Ratio 1.23
[2025-02-04 16:13] LABS: Bun/Creatinine Ratio 20.1 (12.0-20.0); Calcium, Blood 8.4 mg/dL (8.5-10.1); Creatinine, Blood 1.59 mg/dL (0.60-1.20); Free Thyroxine 0.85 ng/dL (0.70-1.60); Magnesium, Blood 1.8 mg/dL (1.6-2.4); Potassium, Blood 4.3 mmol/L (3.5-5.5); Thyroid Stimulating Hormone 1.89 uIU/mL (0.360-4.800)
[2025-02-04 16:45] LABS: Source, Urine Clean Catch
[2025-02-04 16:50] LABS: Appearance, Urine Clear (Clear); Bilirubin, Urine Neg (Neg); Blood, Urine 5+ (Neg); Color, Urine Yellow (P-Yellow); Glucose Qualitative, Urine Neg (Neg); Ketones, Urine Neg (Neg); Leukocyte Esterase, Urine Neg (Neg); Nitrite, Urine Neg (Neg); Protein, Urine Neg (Neg); Urobilinogen, Urine NORM (Normal)
[2025-02-04 17:01] LABS: Bacteria Few /hpf; Squamous Epithelial Cells Rare /hpf (Few); White Blood Cells, Urine 0-2 /hpf (0-5)
[2025-02-04] MEDS ORDERED: ePHEDrine Sulfate 50 MG/ML 1ML Injection IM ONE (19:34)
[2025-02-05 16:29] LABS: BASOPHILS ABSOLUTE AUTO 0.01 K/mm3 (0.00-0.23); BASOPHILS PERCENT AUTO 0 % (0-2); EOSINOPHILS ABSOLUTE AUTO 0.07 K/mm3 (0.00-0.68); EOSINOPHILS PERCENT AUTO 3 % (0-6); Hematocrit 29.6 % (37.0-53.0); Hemoglobin 9.5 g/dL (13.5-17.5); IMMATURE GRAN ABSOLUTE AUTO 0.01 K/mm3 (0.00-0.10); IMMATURE GRAN PERCENT AUTO 0 % (0-1); LYMPHOCYTES PERCENT AUTO 22 % (21-46); MONOCYTES PERCENT AUTO 7 % (4-13); Mean Corpuscular HGB 29.9 pg (26.0-34.0); Mean Corpuscular HGB Conc 32.1 g/dL (31.5-36.5); Mean Corpuscular Volume 93 fL (80-100); Mean Platelet Volume 12.2 fL (9.1-12.4); NEUTROPHILS PERCENT AUTO 67 % (41-73); RDW Coefficient Variation 17.7 % (11.7-14.2); RDW Standard Deviation 60.3 fL (35.1-46.3); Red Blood Cell Count 3.18 M/mm3 (4.30-5.90); White Blood Cell Count 2.69 K/mm3 (4.00-11.30)
[2025-02-05 16:45] LABS: Platelet Count 33 K/mm3 (150-400)
[2025-02-05 16:50] LABS: Bun/Creatinine Ratio 22.6 (12.0-20.0); Calcium, Blood 9.2 mg/dL (8.5-10.1); Creatinine, Blood 1.15 mg/dL (0.60-1.20); Potassium, Blood 4.5 mmol/L (3.5-5.5)
[2025-02-05 19:19] VITALS: BP 139/77
[2025-02-05] MEDS ORDERED: TIOT18 INH (20:09)
[2025-02-05] MEDS ORDERED: ALBU90OI (20:11)
[2025-02-05] MEDS ORDERED: POTCHL20ER PO (20:14)
[2025-02-05] MEDS ORDERED: IPRAT-ALBUT 0.5-3 ML INH (21:39)
[2025-02-05 23:50] VITALS: BP 129/50
--- NOTE | 2025-02-06 04:03 | NUR ---
SHIFT SUMMARY: Pt is admitted for thrombocytopenia and is a full code. Is alert and able to make needs known. ADLs have been mainly 1p. Denies pain or discomfort when asked. Telly reports sinus in the 70s.
[2025-02-06 04:13] VITALS: BP 127/59
[2025-02-06 06:31] LABS: BASOPHILS ABSOLUTE AUTO 0.01 K/mm3 (0.00-0.23); BASOPHILS PERCENT AUTO 0 % (0-2); EOSINOPHILS ABSOLUTE AUTO 0.07 K/mm3 (0.00-0.68); EOSINOPHILS PERCENT AUTO 3 % (0-6); Hematocrit 27.5 % (37.0-53.0); Hemoglobin 8.8 g/dL (13.5-17.5); IMMATURE GRAN ABSOLUTE AUTO 0.01 K/mm3 (0.00-0.10); IMMATURE GRAN PERCENT AUTO 0 % (0-1); LYMPHOCYTES PERCENT AUTO 24 % (21-46); MONOCYTES ABSOLUTE AUTO 0.22 K/mm3 (0.16-1.47); MONOCYTES PERCENT AUTO 9 % (4-13); Mean Corpuscular HGB 30.1 pg (26.0-34.0); Mean Corpuscular Volume 94 fL (80-100); Mean Platelet Volume 12.5 fL (9.1-12.4); NEUTROPHILS PERCENT AUTO 64 % (41-73); RDW Coefficient Variation 17.8 % (11.7-14.2); RDW Standard Deviation 61.7 fL (35.1-46.3); Red Blood Cell Count 2.92 M/mm3 (4.30-5.90); White Blood Cell Count 2.51 K/mm3 (4.00-11.30)
[2025-02-06 06:36] LABS: Platelet Count 32 K/mm3 (150-400)
[2025-02-06 07:06] LABS: Bun/Creatinine Ratio 23.3 (12.0-20.0); Calcium, Blood 8.5 mg/dL (8.5-10.1); Creatinine, Blood 1.16 mg/dL (0.60-1.20); Percent Saturation 25.3 % (20.0-50.0); Potassium, Blood 3.7 mmol/L (3.5-5.5)
[2025-02-06 07:32] VITALS: BP 133/63
[2025-02-06 11:13] LABS: BASOPHILS ABSOLUTE AUTO 0.01 K/mm3 (0.00-0.23); BASOPHILS PERCENT AUTO 0 % (0-2); EOSINOPHILS ABSOLUTE AUTO 0.05 K/mm3 (0.00-0.68); EOSINOPHILS PERCENT AUTO 2 % (0-6); Hemoglobin 8.6 g/dL (13.5-17.5); IMMATURE GRAN ABSOLUTE AUTO 0.01 K/mm3 (0.00-0.10); IMMATURE GRAN PERCENT AUTO 0 % (0-1); LYMPHOCYTES ABSOLUTE AUTO 0.53 K/mm3 (0.84-5.20); LYMPHOCYTES PERCENT AUTO 20 % (21-46); MONOCYTES ABSOLUTE AUTO 0.29 K/mm3 (0.16-1.47); MONOCYTES PERCENT AUTO 11 % (4-13); Mean Corpuscular HGB 29.7 pg (26.0-34.0); Mean Corpuscular HGB Conc 31.9 g/dL (31.5-36.5); Mean Corpuscular Volume 93 fL (80-100); Mean Platelet Volume 12.8 fL (9.1-12.4); NEUTROPHILS ABSOLUTE AUTO 1.83 K/mm3 (1.96-9.15); NEUTROPHILS PERCENT AUTO 67 % (41-73); RDW Standard Deviation 61.7 fL (35.1-46.3); White Blood Cell Count 2.72 K/mm3 (4.00-11.30)
[2025-02-06 11:20] LABS: Platelet Count 31 K/mm3 (150-400)
[2025-02-06 11:35] LABS: Bun/Creatinine Ratio 23.7 (12.0-20.0); Calcium, Blood 8.7 mg/dL (8.5-10.1); Creatinine, Blood 1.14 mg/dL (0.60-1.20); Potassium, Blood 3.6 mmol/L (3.5-5.5)
[2025-02-06 11:51] VITALS: BP 145/54
[2025-02-06] MEDS ORDERED: Albuterol HFA200 ACT/6.7 GM INH INH PRN (13:35)
[2025-02-06] MEDS ORDERED: Tiotropium Bromide 2.5 MCG/ACT MIST INHAL (10 ACT/4 GM) INH SCH (13:35)
[2025-02-06] MEDS ORDERED: Pregabalin 50 MG Capsule PO SCH (14:00)
[2025-02-06 15:27] VITALS: BP 116/61
--- NOTE | 2025-02-06 17:04 | NUR ---
PT HAS BEEN PLEASANT TODAY. A/O OX4, BROTHER IN TO VISIT TODAY. NO C/O PAIN FOR ME TODAY. CONTINUES TO BE SOME WEAK IN LEGS TODAY. OKAY TO STAND PIVOT. NO NEW CONCERNS NOTED. BED IN LOW POSITION, CALL LITE IN REACH, CALLS APROP
[2025-02-06 19:42] VITALS: BP 121/58
[2025-02-06] MEDS ORDERED: Metoprolol Succinate 50 MG TABCR PO SCH (21:00)
[2025-02-06 23:24] VITALS: BP 115/45
[2025-02-07] VITALS (9 sets, daily range): BP systolic 82–134; BP diastolic 42–80
[2025-02-07 05:56] LABS: BASOPHILS PERCENT AUTO 0 % (0-2); EOSINOPHILS ABSOLUTE AUTO 0.08 K/mm3 (0.00-0.68); EOSINOPHILS PERCENT AUTO 4 % (0-6); Hematocrit 26.9 % (37.0-53.0); Hemoglobin 8.6 g/dL (13.5-17.5); IMMATURE GRAN ABSOLUTE AUTO 0.01 K/mm3 (0.00-0.10); IMMATURE GRAN PERCENT AUTO 1 % (0-1); LYMPHOCYTES ABSOLUTE AUTO 0.59 K/mm3 (0.84-5.20); LYMPHOCYTES PERCENT AUTO 27 % (21-46); MONOCYTES ABSOLUTE AUTO 0.17 K/mm3 (0.16-1.47); MONOCYTES PERCENT AUTO 8 % (4-13); Mean Corpuscular Volume 94 fL (80-100); Mean Platelet Volume 12.9 fL (9.1-12.4); NEUTROPHILS ABSOLUTE AUTO 1.31 K/mm3 (1.96-9.15); NEUTROPHILS PERCENT AUTO 61 % (41-73); RDW Coefficient Variation 17.8 % (11.7-14.2); RDW Standard Deviation 61.8 fL (35.1-46.3); Red Blood Cell Count 2.87 M/mm3 (4.30-5.90); White Blood Cell Count 2.16 K/mm3 (4.00-11.30)
[2025-02-07] MEDS ORDERED: Omeprazole 20 MG CapCR PO SCH (06:00)
[2025-02-07 06:03] LABS: Platelet Count 31 K/mm3 (150-400)
[2025-02-07 06:19] LABS: Calcium, Blood 8.8 mg/dL (8.5-10.1); Creatinine, Blood 1.05 mg/dL (0.60-1.20); Potassium, Blood 3.8 mmol/L (3.5-5.5)
[2025-02-07] MEDS ORDERED: Isosorbide Mononitrate 30 MG TABCR PO SCH (09:00)
[2025-02-07] MEDS ORDERED: Potassium Chloride 10 Meq Tablet SA PO SCH (09:00)
[2025-02-07] MEDS ORDERED: Montelukast Sodium 10 MG Tab PO SCH (09:00)
[2025-02-07] MEDS ORDERED: Allopurinol 300 MG Tab PO SCH (09:00)
[2025-02-07] MEDS ORDERED: Sertraline HCl 100 MG Tab PO SCH (09:00)
[2025-02-07] MEDS ORDERED: DAPAGLIFLOZIN (FARXIGA) 10 MG TABLET PO SCH (09:00)
[2025-02-07] MEDS ORDERED: Methocarbamol 500 MG Tab PO SCH (09:00)
[2025-02-07] MEDS ORDERED: Lisinopril 5 MG Tab PO SCH (09:00)
[2025-02-07] MEDS ORDERED: Atorvastatin 40 MG Tab PO SCH (09:00)
[2025-02-07] MEDS ORDERED: Bumetanide 1 MG Tab PO SCH (09:00)
[2025-02-07] MEDS ORDERED: Sod Ferric Gluc Complx/Sucrose 125 MG in NS 100 ML IV SCH (11:37)
[2025-02-07] MEDS ORDERED: NS 250 ML IV PRN (12:20)
--- NOTE | 2025-02-07 14:20 | NUR ---
ADMINISTERING PATIENT LYRICA PO. PATIENT CHOKING ON WATER. HAD FOOD RESIDUE IN MOUTH. PER WHO WAS AT BEDSIDE PATIENT HAS BEEN NOTED TO CHOKE OFTEN WHEN EATING OR DRINKING. ORDERS NPO UNTIL SPEECH EVAL.
--- NOTE | 2025-02-07 17:10 | NUR ---
1707- THIS RN CALLED MD RIBERA AND INFORMED HIM PT WAS HYPOTENSIVE AND READ HIM PT'S LAST BP FOR THE PAST HR. RN ALSO ASKED ABOUT MAINTENANCE FLUIDS FOR PT SINCE HE IS NPO UNTIL [facility] TOMORROW. SAID TO GIVE 500ML NS BOLUS NOW AND THEN NS AT 75ML/HR WHILE NPO.
[2025-02-07] MEDS ORDERED: NS 1,000 ML IV SCH (17:15)
[2025-02-07] MEDS ORDERED: NS 1,000 ML BAG IR ONE (17:15)
--- NOTE | 2025-02-07 18:27 | NUR ---
SUMMARY- AAOX4. PT ON RA WHEN AWAKE, OTHERWISE USES CPAP W/NO BLEED IN O2. PT AGREEABLE TO GET OOB INTO CHAIR FOR BREAKFAST THIS AM ONLY. X1 ASSIST W/GAIT BELT AND WALKER. PT DENIES PAIN THIS SHIFT. HYPOTENSIVE THIS SHIFT; REFER TO OTHER NOTES FOR DETAILS. PT CHOKED ON HIS MEDS WHEN BREAK NURSE, JONAH Choi GAVE AFTERNOON LYRICA. PT NPO UNTIL [facility] TOMORROW MORNING 02/07/25. PT'S AND PT BOTH IFORMED THIS RN THAT PT HAS CHOKED ON PILLS BEFORE AT HOME. OF NOTE-PT DID WELL WITH SWALLOWING ALL HIS AM PILLS-NO ISSUES NOTED.
--- NOTE | 2025-02-07 18:41 | NUR ---
1839- RECHECK AFTER BOLUS COMPLETE: BP=96/48.
[2025-02-08] VITALS (9 sets, daily range): BP systolic 82–130; BP diastolic 40–66
[2025-02-08 07:27] LABS: Hematocrit 27.5 % (37.0-53.0); Hemoglobin 8.9 g/dL (13.5-17.5); Mean Corpuscular HGB 30.1 pg (26.0-34.0); Mean Corpuscular HGB Conc 32.4 g/dL (31.5-36.5); Mean Corpuscular Volume 93 fL (80-100); RDW Standard Deviation 61.4 fL (35.1-46.3); Red Blood Cell Count 2.96 M/mm3 (4.30-5.90); White Blood Cell Count 2.58 K/mm3 (4.00-11.30)
[2025-02-08 07:40] LABS: Bun/Creatinine Ratio 22.7 (12.0-20.0); Calcium, Blood 8.1 mg/dL (8.5-10.1); Creatinine, Blood 1.32 mg/dL (0.60-1.20); Potassium, Blood 4.1 mmol/L (3.5-5.5)
[2025-02-08 08:10] LABS: BASOPHILS PERCENT MAN 0 % (0-2); EOSINOPHILS ABSOLUTE MAN 0.07 K/mm3 (0.00-0.68); EOSINOPHILS PERCENT MAN 3 % (0-6); LYMPHOCYTES ABSOLUTE MAN 0.74 K/mm3 (0.84-5.20); LYMPHOCYTES PERCENT MAN 29 % (21-46); MONOCYTES PERCENT MAN 4 % (4-13); NEUTROPHILS ABSOLUTE MAN 1.65 K/mm3 (1.96-9.15); SEG NEUTROPHILS PERCENT MAN 64 % (41-73); TOTAL CELLS COUNTED 100
[2025-02-08 08:11] LABS: Platelet Count 27 K/mm3 (150-400)
--- NOTE | 2025-02-08 09:46 | NUR ---
0940- NOTIFIED MD RIBERA OF PT'S INCREASE IN PROLONGED QTc. STATED HE WILL CHECK PT'S MEDS AND ORDER SOME LABS.
--- NOTE | 2025-02-08 15:00 | NUR ---
5159- THIS RN CALLED MD RIBERA TO REPORT LOW BP OF 86/40 AND PT BECOMMING SYMPTOMATIC STATING HE SAW "SPOTS" WHEN WORKING WITH PHYSICAL THERAPY STANDING UP. PT WAS PLACED IN RECLINER AND IS LYING FLAT CURRENTLY. PT DENIES DIZZINES/VISION CHANGES CURRENTLY WHILE IN CHAIR.
--- NOTE | 2025-02-08 15:11 | NUR ---
1510- NOTIFIED MD OF PT'S LOW BP 86/40. MD SAID GIVE 500ML NS BOLUS NOW.
[2025-02-08] MEDS ORDERED: NS 1,000 ML BAG IV ONE (15:15)
--- NOTE | 2025-02-08 15:33 | NUR ---
1530- MD WEINER GAVE VERBAL TO DC COREG ORDER AND CLEAR LIQUID DIET. WANTS PT ON CARDIAC DIET. PT NEEDS BP UP AND NORMALIZED PRIOR TO PREP FOR SCOPE PER HUSAM.
[2025-02-08] MEDS ORDERED: Carvedilol 3.125 MG Tab PO SCH (17:00)
--- NOTE | 2025-02-08 18:08 | NUR ---
SHIFT SUMMARY: PT IS A&Ox4, PLEASANT AND COOPERATIVE. WEAKNESS IN BILATERAL LEGS, PHYSICAL THERAPY RECOMMENDED USE OF URINAL DUE TO WEAKNESS AND UNSTEADY GAIT. TWO PERSON TRANSFER TO CHAIR/BED. PT DENIES ANY PAIN TODAY. OXYGEN SATURATION CURRENTLY 96% ON ROOM AIR. PT EXPERIENCED BLOOD PRESSURE DROP TO 78/38 THIS AFTERNOON. 500 ML NS BOLUS ADMINISTERED AND MANUAL BLOOD PRESSURE CHECKS PERFORMED EVERY 15 MINUTES FOR THE FIRST HOUR, THEN HOURLY. BLOOD PRESSURE INCREASED AND READ 105/50 AT 1800. PT IS CURRENTLY SITTING UP IN RECLINER AND EATING DINNER. PT TAKES MEDS WHOLE IN APPLESAUCE, ONE PILL AT A TIME, USES CHIN-TUCK METHOD TO SWALLOW PILLS. GRANDDAUGHTER AT BEDSIDE, CALL LIGHT WITHIN REACH.
[2025-02-09] VITALS (7 sets, daily range): BP systolic 86–109; BP diastolic 41–50
--- NOTE | 2025-02-09 03:28 | NUR ---
SHIFT SUMMARY PATIENT HAS APPEARED TO SLEEP COMFORTABLY DURING THIS SHIFT. C PAP IS IN PLACE AND CONTINUOUS PULSE OX IS IN PLACE. PATIENT IS ALSO WEARING A TELE MONITOR. HIS RHYTHM HAS BEEN SINUS CHRIS IN THE 50'S WHILE HE WAS SLEEPING. PATIENT HAS BEEN ORIENTED X4. HE HAS HIS CALL LIGHT WITHIN REACH. SAFETY PRECAUTIONS ARE BEING MAINTAINED.
[2025-02-09 06:05] LABS: BASOPHILS ABSOLUTE AUTO 0.01 K/mm3 (0.00-0.23); BASOPHILS PERCENT AUTO 0 % (0-2); EOSINOPHILS ABSOLUTE AUTO 0.07 K/mm3 (0.00-0.68); EOSINOPHILS PERCENT AUTO 3 % (0-6); Hematocrit 27.8 % (37.0-53.0); Hemoglobin 8.9 g/dL (13.5-17.5); IMMATURE GRAN ABSOLUTE AUTO 0.01 K/mm3 (0.00-0.10); IMMATURE GRAN PERCENT AUTO 0 % (0-1); LYMPHOCYTES ABSOLUTE AUTO 0.52 K/mm3 (0.84-5.20); LYMPHOCYTES PERCENT AUTO 23 % (21-46); MONOCYTES ABSOLUTE AUTO 0.16 K/mm3 (0.16-1.47); MONOCYTES PERCENT AUTO 7 % (4-13); Mean Corpuscular HGB 30.4 pg (26.0-34.0); Mean Corpuscular Volume 95 fL (80-100); Mean Platelet Volume 12.3 fL (9.1-12.4); NEUTROPHILS ABSOLUTE AUTO 1.53 K/mm3 (1.96-9.15); NEUTROPHILS PERCENT AUTO 67 % (41-73); RDW Standard Deviation 62.1 fL (35.1-46.3); Red Blood Cell Count 2.93 M/mm3 (4.30-5.90)
[2025-02-09 06:13] LABS: Platelet Count 36 K/mm3 (150-400)
[2025-02-09 06:32] LABS: Bun/Creatinine Ratio 22.8 (12.0-20.0); Calcium, Blood 8.3 mg/dL (8.5-10.1); Creatinine, Blood 1.49 mg/dL (0.60-1.20); Potassium, Blood 4.1 mmol/L (3.5-5.5)
--- NOTE | 2025-02-09 06:50 | NUR ---
PLATELET LEVEL CRITAL LAB VALUE: PLATELETS 36. THIS VALUE IS EXPECTED. REPORTED TO RN PLASMA CENTER. NO NEED TO CALL MD.
[2025-02-09] MEDS ORDERED: Midodrine 5 MG Tab PO ONE (15:55)
[2025-02-09] MEDS ORDERED: Midodrine 5 MG Tab PO SCH (16:00)
--- NOTE | 2025-02-09 17:22 | NUR ---
PT HAD NO C/O PAIN, SOB OR CHEST PAIN. PT HAD LOW BP AROUND 1730, GAVE NEW MEDICATION, SEE EMAR FOR DETAILS. PT HAS NO QUESTIONS OR CONCERNS AT THIS TIME.
--- NOTE | 2025-02-10 04:43 | NUR ---
SHIFT SUMMARY: PT AOX4 BUT SLOW SPEECH AND SOME CONFUSION. PT CALLS APPROPRIATELY AND IS ABLE TO MAKE NEEDS KNOWN. PT TOLERATING MEDICATIONS 1 AT A TIME AND HAVING GOOD OUTPUT. PT TOLERATING CPAP AND SLEPT WELL THROUGH THE NIGHT. PT HAD VERY WEAK AND UNSTEADY GAIT, HAD A CLOSE CALL WITH A 2PA INTO THE BED, FALLING INTO THE BED, NO INJURIES AND DIDNT HIT ANYTHING, STILL VERY WEAK ON HIS FEET, WOULDNT RECOMMEND GETTING UP IF POSSIBLE. PT STATES HE FEELS MUCH WEAKER THIS STAY THAN AT HOME. PT IN BED SLEEPING, BED IN LOWEST POSITION, CALL LIGHT IN REACH. CONTINUING CARE.
[2025-02-10 05:01] VITALS: BP 100/42
[2025-02-10 05:46] LABS: Albumin, Blood 2.6 g/dL (3.4-5.0); Albumin/Globulin Ratio 0.7 (0.8-1.8); Bilirubin, Total 1.4 mg/dL (0.1-1.0); Bun/Creatinine Ratio 23.5 (12.0-20.0); Calcium, Blood 8.1 mg/dL (8.5-10.1); Creatinine, Blood 1.32 mg/dL (0.60-1.20); Globulin, Blood 3.9 g/dL (2.2-4.0); Total Protein, Blood 6.5 g/dL (6.4-8.2)
[2025-02-10 07:31] VITALS: BP 127/62
[2025-02-10 11:09] VITALS: BP 116/54
[2025-02-10 15:48] VITALS: BP 113/48
[2025-02-10 17:43] LABS: HEPATITIS B SURFACE ANTIGEN Negative (Negative)
[2025-02-10 18:03] LABS: HBV CORE ANTIBODIES,TOTAL Negative (Negative)
--- NOTE | 2025-02-10 18:36 | NUR ---
NO CHANGES, VISITED, PT/OT WORKED WITH PATIENT, MALE PURWIK IN PLACE, CLEARLY MAKES NEEDS KNOWN, DR CHRISTIANSON CALLED- HE WILL FOLLOW UP TOMORROW, POSSIBLE PROCEDURE ON SATURDAY PREP TOMORROW. MEDS ONE AT A TIME WITH RUPERT, CALL LIGHT WITH IN REACH, IMPULSIVE TO GET OUT O BED AT TIMES, PATIENT REDIRECTS EASILY AT TIMES, CALL LIGHT WITH IN REACH
[2025-02-10 19:53] VITALS: BP 109/49
[2025-02-10] MEDS ORDERED: Polyethylene Glycol 3350 17 gm PO ONE ×2 (20:00→20:25)
[2025-02-10] MEDS ORDERED: Docusate Sodium/Senna 1 Tab PO ONE (20:00)
[2025-02-11] VITALS (10 sets, daily range): BP systolic 98–148; BP diastolic 41–75
--- NOTE | 2025-02-11 04:35 | NUR ---
SHIFT SUMMARY: PT AOX4 WITH SOME FORGETFULLNESS. CALLS APPROPRIATELY AND ABLE TO MAKE NEEDS KNOWN. REFUSED CPAP TONIGHT, SLEEPING ON RA AND SATTING 94 THROUGH OUT THE NIGHT. TOLERATING MEDICATIONS AND DIET CHANGE WELL, NO BM LAST NIGHT. STARTING BOWEL PREP IN THE EARLY AM. MALE PUREWICK IN PLACE WITH GREAT OUTPUT THROUGHOUT THE NIGHT. NO ACUTE EVENTS OVERNIGHT. PT WAS ANXIOUS ABOUT PROCEDURE AT BEGINNING OF SHIFT, EXPLAINED PROCEDURE TO PT AND AND SEEMED TO BE AT EASE AND ON BOARD WITH THE PREP + PROCEDURE. PT IN BED SLEEPING, BED IN LOWEST POSITION, CALL LIGHT IN REACH. CONTINUING CARE.
[2025-02-11] MEDS ORDERED: Peg/Electrolytes 4,000 ML BTL PT ONE (05:00)
[2025-02-11] MEDS ORDERED: Ondansetron HCl 2 MG / ML 2ML Vial IV ONE (05:15)
[2025-02-11 05:58] LABS: BASOPHILS ABSOLUTE AUTO 0.02 K/mm3 (0.00-0.23); BASOPHILS PERCENT AUTO 1 % (0-2); EOSINOPHILS PERCENT AUTO 3 % (0-6); Hematocrit 29.5 % (37.0-53.0); Hemoglobin 9.5 g/dL (13.5-17.5); IMMATURE GRAN ABSOLUTE AUTO 0.01 K/mm3 (0.00-0.10); IMMATURE GRAN PERCENT AUTO 0 % (0-1); LYMPHOCYTES ABSOLUTE AUTO 0.92 K/mm3 (0.84-5.20); LYMPHOCYTES PERCENT AUTO 23 % (21-46); MONOCYTES ABSOLUTE AUTO 0.32 K/mm3 (0.16-1.47); MONOCYTES PERCENT AUTO 8 % (4-13); Mean Corpuscular HGB 30.5 pg (26.0-34.0); Mean Corpuscular HGB Conc 32.2 g/dL (31.5-36.5); Mean Corpuscular Volume 95 fL (80-100); Mean Platelet Volume 12.1 fL (9.1-12.4); NEUTROPHILS ABSOLUTE AUTO 2.64 K/mm3 (1.96-9.15); NEUTROPHILS PERCENT AUTO 66 % (41-73); RDW Coefficient Variation 18.5 % (11.7-14.2); RDW Standard Deviation 62.5 fL (35.1-46.3); Red Blood Cell Count 3.11 M/mm3 (4.30-5.90); White Blood Cell Count 4.01 K/mm3 (4.00-11.30)
[2025-02-11 06:24] LABS: Bun/Creatinine Ratio 23.7 (12.0-20.0); Calcium, Blood 8.4 mg/dL (8.5-10.1); Creatinine, Blood 1.18 mg/dL (0.60-1.20); Potassium, Blood 4.1 mmol/L (3.5-5.5)
[2025-02-11 06:26] LABS: Platelet Count 43 K/mm3 (150-400)
[2025-02-11 06:27] LABS: FACTIN SMOOTH MUSCLE,IGG ELISA 28 Units (0-19)
--- NOTE | 2025-02-11 14:18 | NUR ---
PATIENT STOOL NOT YET CLEAR; CALL MADE TO DR. WEINER HE WISHES FOR THE PATIENT TO DRINK AN ADDITIONAL HALF GALLON OF PREP AND TO CALL HIM WHEN PATIENT'S STOOL IS GETTING CLEAR.
[2025-02-11] MEDS ORDERED: Peg/Electrolytes 4,000 ML BTL PO ONE (14:20)
--- NOTE | 2025-02-11 16:34 | NUR ---
SHIFT SUMMARY: PATIENT IS A&OX4/1 PERSON/SBA ASSIST WITH THE FWW TO THE BATHROOM; HE IS UTILIZING A MALE PUREWICK WHEN LAYING IN BED. COMPLETED 1.5 JUGS ON BOWEL PREP; PATIENT STOOLS TRANSLUCENT YELLOW WITH PIECES OF STOOL; REPORTED TO DR. WEINER AND MADE NPO WHILE AWAITING FOR EGD AND COLONOSCOPY. PATIENT IN BED, CALL LIGHT WITHIN REACH, NO SIGNS OR SYMPTOMS OF DISTRESS, PLAN OF CARE ONGOING.
[2025-02-11] MEDS ORDERED: Dexmedetomidine HCL 200 MCG / 2 ML ONE (17:00)
[2025-02-11] MEDS ORDERED: Lidocaine HCl 4% 5 ML SDA ONE (17:01)
[2025-02-11] MEDS ORDERED: propofoL 50 ML IV ONE (17:01)
[2025-02-11] MEDS ORDERED: Lactated Ringer's 1,000 ML IV SCH (17:05)
--- NOTE | 2025-02-11 17:11 | NUR ---
PT TRANSPORTED TO DAY SURG FOR PROCEDURE. NO SOLID STOOL NOTED. PT ALERT AND ORIENTED X4, 1 ASSIST TO BATHROOM WITH FWW. SPOUSE, LUIGI, NOTIFIED. SPOUSE AWARE DR. WEINER WILL CALL WHEN PROCEDURE IS COMPLETE.
--- NOTE | 2025-02-11 19:18 | NUR ---
02/11/[id number] Thania Cheek c ; SEE ANESTHESIA RECORDS. SIMETHICONE USED DURING PROCEDURE.
--- NOTE | 2025-02-11 19:28 | NUR ---
PT BACK IN ROOM FROM PROCEDURE. NOC RN AT BEDSIDE WITH THIS RN. PT IS DROWSY, WAKES EASILY, CURRENTLY SITTING UP EATING DINNER. SPOUSE UPDATED. HUSAM WILL CALL FAMILY WITH RESULTS.
[2025-02-12 00:19] VITALS: BP 96/47
[2025-02-12 04:15] VITALS: BP 104/47
--- NOTE | 2025-02-12 05:49 | NUR ---
SHIFT SUMMARY: Pt is admitted for thrombocytapina and is a full code. Is alert and able to make needs known. ADLs have been mostly 1p. Denies pain or discomfort when asked. IV to right shoulder getting NS at 75. Returned to the floor after getting EGD and endoscope. No adverse effects noted. had 2 runs of vtac 12 beat and 5 beat. provider aware.
[2025-02-12 07:16] VITALS: BP 114/57
[2025-02-12 08:22] LABS: BASOPHILS ABSOLUTE AUTO 0.01 K/mm3 (0.00-0.23); BASOPHILS PERCENT AUTO 1 % (0-2); EOSINOPHILS ABSOLUTE AUTO 0.05 K/mm3 (0.00-0.68); EOSINOPHILS PERCENT AUTO 3 % (0-6); Hematocrit 26.3 % (37.0-53.0); Hemoglobin 8.5 g/dL (13.5-17.5); IMMATURE GRAN PERCENT AUTO 0 % (0-1); LYMPHOCYTES ABSOLUTE AUTO 0.41 K/mm3 (0.84-5.20); LYMPHOCYTES PERCENT AUTO 23 % (21-46); MONOCYTES ABSOLUTE AUTO 0.14 K/mm3 (0.16-1.47); MONOCYTES PERCENT AUTO 8 % (4-13); Mean Corpuscular HGB 30.9 pg (26.0-34.0); Mean Corpuscular HGB Conc 32.3 g/dL (31.5-36.5); Mean Corpuscular Volume 96 fL (80-100); Mean Platelet Volume 12.6 fL (9.1-12.4); NEUTROPHILS ABSOLUTE AUTO 1.15 K/mm3 (1.96-9.15); NEUTROPHILS PERCENT AUTO 65 % (41-73); RDW Coefficient Variation 18.8 % (11.7-14.2); RDW Standard Deviation 64.8 fL (35.1-46.3); Red Blood Cell Count 2.75 M/mm3 (4.30-5.90); White Blood Cell Count 1.76 K/mm3 (4.00-11.30)
[2025-02-12 08:40] LABS: Platelet Count 32 K/mm3 (150-400)
[2025-02-12 08:43] LABS: Bun/Creatinine Ratio 21.9 (12.0-20.0); Calcium, Blood 8.1 mg/dL (8.5-10.1); Creatinine, Blood 0.96 mg/dL (0.60-1.20); Potassium, Blood 3.7 mmol/L (3.5-5.5)
[2025-02-12] MEDS ORDERED: FERSU300 PO (11:26)
[2025-02-12] MEDS ORDERED: MIDO5 PO (11:26)
--- NOTE | 2025-02-12 12:35 | NUR ---
SHIFT/DISCHARGE SUMMARY: PATIENT A/OX4, PLEASANT AND COOPERATIVE c CARE. PATIENT DENIES CP/PRESSURE, SOB, N/V AND DIZZINESS. PATIENT HAS HAD NO NEW EVENTS ON TELE THIS SHIFT, SR HR IN THE 60'S BPM c 1ST DHB, BBB AND PROLONG QTC 0.53. PATIENT ON RA, LUNGS CLEAR/DIM T/O TO AUSCULTATION, USES CPAP AT HS. MIPELEX DRESSING CHANGED TO R LEG AND COCCYX. PATIENT RECEIVED SCHEDULED MEDS PER EMAR. VITAL SIGNS REVIEWED. PIV DC'D. PATIENT DISCHARGE TO [facility]. DISCHARGE INSTRUCTIONS PACKET GIVEN TO RIDE ASSOCIATE. PATIENT EDUCATED ON ADMITTING DX'S, S/S, TX AND REHAB TO [facility] FOR STRENGTENING. PATIENT VERBALIZED UNDERSTANDING AND NO FURTHER QUESTIONS. ALL PERSONAL BELONGINGS WERE SENT c THE PATIENT. PATIENT LEFT THE ROOM AT 1154, TRANSPORTED VIA WHEELCHAIR TO [facility]. THIS RN CALLED [facility] FOR TR, SPOKE TO DOUG AT [facility] AND TRANSFERRED TO ANOTHER LINE AND WENT TO VOICE MAIL. THIS RN LEFT A MESSAGE FOR CALL BACK AT [phone].
[2025-02-13 09:02] LABS: SMOOTH MUSCLE AB,IGG TITER <1:20 (<1:20)
== END 2025-02-12 11:55 | DRG 809 ==
LOC: ER 14:16 → MEDS 14:17 → ERHOLD 14:17 → MEDS 14:18 → ENPENDDIS 02-12 10:57 → MEDS 02-12 11:55
PROVIDERS: Emergency Medicine; Family Medicine; Internal Medicine; Internal Medicine Gastroenterology; ADMIT Internal Medicine
PROC: 0DBP8ZZ Excision of Rectum, Via Natural or Artificial Opening Endoscopic (ICD-10-PCS; principal; 2025-02-11 17:00)
PROC: 0DJ08ZZ Inspection of Upper Intestinal Tract, Via Natural or Artificial Opening Endoscopic (ICD-10-PCS; 2025-02-11 17:00)
DX: D61.818 Other pancytopenia (principal); I85.10 Secondary esophageal varices without bleeding; N17.9 Acute kidney failure, unspecified; Z68.42 Body mass index [BMI] 45.0-49.9, adult; K62.5 Hemorrhage of anus and rectum; R53.1 Weakness; E66.01 Morbid (severe) obesity due to excess calories; I10 Essential (primary) hypertension; F32.A Depression, unspecified; R73.03 Prediabetes; G47.33 Obstructive sleep apnea (adult) (pediatric); D50.9 Iron deficiency anemia, unspecified; R16.1 Splenomegaly, not elsewhere classified; K62.1 Rectal polyp; K64.4 Residual hemorrhoidal skin tags; K57.30 Diverticulosis of large intestine without perforation or abscess without bleeding; J44.89 Other specified chronic obstructive pulmonary disease; K74.69 Other cirrhosis of liver; M1A.9XX0 Chronic gout, unspecified, without tophus (tophi); I95.9 Hypotension, unspecified; Z87.891 Personal history of nicotine dependence; Z79.899 Other long term (current) drug therapy; Z91.81 History of falling; Z79.51 Long term (current) use of inhaled steroids; Z79.84 Long term (current) use of oral hypoglycemic drugs; Z86.14 Personal history of Methicillin resistant Staphylococcus aureus infection; Z86.0101 Personal history of adenomatous and serrated colon polyps
CPT/HCPCS: 36415; 70450; 70551; 71045; 72170; 74177; 80048; 80053; 81001; 82105; 82607; 82728; 82746; 82947; 83540; 83550; 83735; 84439; 84443; 85025; 85610; 85730; 86015; 86256; 86704; 87340; 88305; 92610; 93005; 93010; 94640; 94660; 94664; 94762; 96365; 96366; 96375; 96376; 97110; 97110-CQ; 97116; 97162; 97166; 97530; 97530-CQ; 97535; 99285-25; A9270; G0378; J2003; J2405; J2704; J2916; J7030; J7120; Q9967

== ENCOUNTER 2025-02-17 21:39 | Observation (INO) | payer OTHER ==
[~2025-02-17] VITALS: Ht 177.8 cm; Wt 140.2 kg
[~2025-02-17 21:39] MED LIST changes: +ALBU90OI INH; +FERSU300 PO; +IPRAT-ALBUT 0.5-3 ML INH; +MIDO5 PO; +POTCHL20ER PO; +TIOT18 INH
[2025-02-17 22:09] LABS: BASOPHILS ABSOLUTE AUTO 0.01 K/mm3 (0.00-0.23); BASOPHILS PERCENT AUTO 0 % (0-2); EOSINOPHILS ABSOLUTE AUTO 0.05 K/mm3 (0.00-0.68); EOSINOPHILS PERCENT AUTO 2 % (0-6); Hematocrit 29.1 % (37.0-53.0); Hemoglobin 9.6 g/dL (13.5-17.5); IMMATURE GRAN ABSOLUTE AUTO 0.01 K/mm3 (0.00-0.10); IMMATURE GRAN PERCENT AUTO 0 % (0-1); LYMPHOCYTES ABSOLUTE AUTO 0.53 K/mm3 (0.84-5.20); LYMPHOCYTES PERCENT AUTO 23 % (21-46); MONOCYTES ABSOLUTE AUTO 0.18 K/mm3 (0.16-1.47); MONOCYTES PERCENT AUTO 8 % (4-13); Mean Corpuscular HGB 31.1 pg (26.0-34.0); Mean Corpuscular Volume 94 fL (80-100); Mean Platelet Volume 11.2 fL (9.1-12.4); NEUTROPHILS ABSOLUTE AUTO 1.51 K/mm3 (1.96-9.15); NEUTROPHILS PERCENT AUTO 66 % (41-73); RDW Coefficient Variation 20.6 % (11.7-14.2); RDW Standard Deviation 70.6 fL (35.1-46.3); Red Blood Cell Count 3.09 M/mm3 (4.30-5.90); White Blood Cell Count 2.29 K/mm3 (4.00-11.30)
[2025-02-17 22:12] LABS: Platelet Count 37 K/mm3 (150-400)
[2025-02-17 22:31] LABS: Albumin, Blood 2.7 g/dL (3.4-5.0); Albumin/Globulin Ratio 0.6 (0.8-1.8); Bilirubin, Total 1.2 mg/dL (0.1-1.0); Bun/Creatinine Ratio 16.1 (12.0-20.0); Calcium, Blood 8.5 mg/dL (8.5-10.1); Creatinine, Blood 1.12 mg/dL (0.60-1.20); Globulin, Blood 4.2 g/dL (2.2-4.0); Potassium, Blood 3.7 mmol/L (3.5-5.5); Total Protein, Blood 6.9 g/dL (6.4-8.2)
[2025-02-17 23:48] LABS: International Normalized Ratio 1.23
[2025-02-18] MEDS ORDERED: Ondansetron 4 MG TAB PO PRN (02:40)
[2025-02-18 03:17] LABS: Source, Urine Clean Catch
[2025-02-18 03:22] LABS: Appearance, Urine Clear (Clear); Bilirubin, Urine Neg (Neg); Blood, Urine 5+ (Neg); Color, Urine Yellow (P-Yellow); Glucose Qualitative, Urine 3+ (Neg); Ketones, Urine Neg (Neg); Leukocyte Esterase, Urine Neg (Neg); Nitrite, Urine Neg (Neg); Protein, Urine 1+ (Neg); Specific Gravity, Urine 1.015 (1.003-1.022); Urobilinogen, Urine 2+ (Normal)
[2025-02-18 03:38] VITALS: BP 122/60
[2025-02-18 03:41] LABS: U Amphetamine Screen Not Detected; U Barbituate Screen Not Detected; U Benzodiazapine Screen Not Detected; U Buprenorphine Screen Not Detected; U Cannabinoids Screen Not Detected; U Cocaine Screen Not Detected; U Methadone Screen Not Detected; U Methamphetamine Screen Not Detected; U Opiates Screen Not Detected; U Oxycodone Screen Not Detected; U Phencyclidine Screen Not Detected
[2025-02-18 03:43] LABS: Bacteria Few /hpf; Squamous Epithelial Cells Rare /hpf (Few)
--- NOTE | 2025-02-18 05:44 | NUR ---
SHIFT SUMMARY PT ARRIVED FROM ER AT ABOUT 0330. ORIENTED TO ROOM. ATTEMPTED TO PLACE PT IN GOWN BUT PT DECLINED. PICTURES TAKEN OF R BUTTOCK AND BLE AND ARE IN CHART. MEPALEX PLACED STAGE 1 PRESSURE SORE ON R BUTTOCK. ON RA AND SATING AT 100%. VSS. DAIGLE, FROM [facility] CALLED FOR UPDATE AND STATED SHE WOULD INFORM PT's . BED ALARM ON. BED IN LOWEST POSITION AND CALL LIGHT IN REACH.
[2025-02-18 06:19] LABS: BASOPHILS ABSOLUTE AUTO 0.01 K/mm3 (0.00-0.23); BASOPHILS PERCENT AUTO 1 % (0-2); EOSINOPHILS ABSOLUTE AUTO 0.07 K/mm3 (0.00-0.68); EOSINOPHILS PERCENT AUTO 3 % (0-6); Hematocrit 27.6 % (37.0-53.0); Hemoglobin 9.1 g/dL (13.5-17.5); IMMATURE GRAN ABSOLUTE AUTO 0.01 K/mm3 (0.00-0.10); IMMATURE GRAN PERCENT AUTO 1 % (0-1); LYMPHOCYTES ABSOLUTE AUTO 0.46 K/mm3 (0.84-5.20); LYMPHOCYTES PERCENT AUTO 21 % (21-46); MONOCYTES ABSOLUTE AUTO 0.19 K/mm3 (0.16-1.47); MONOCYTES PERCENT AUTO 9 % (4-13); Mean Corpuscular HGB 31.5 pg (26.0-34.0); Mean Corpuscular Volume 96 fL (80-100); Mean Platelet Volume 11.9 fL (9.1-12.4); NEUTROPHILS ABSOLUTE AUTO 1.46 K/mm3 (1.96-9.15); NEUTROPHILS PERCENT AUTO 66 % (41-73); RDW Coefficient Variation 20.3 % (11.7-14.2); RDW Standard Deviation 70.7 fL (35.1-46.3); Red Blood Cell Count 2.89 M/mm3 (4.30-5.90)
[2025-02-18 06:29] LABS: Platelet Count 35 K/mm3 (150-400)
[2025-02-18] MEDS ORDERED: MIRALAX17 GM PO (06:34)
[2025-02-18] MEDS ORDERED: SENN187 PO (06:36)
[2025-02-18 06:38] LABS: Albumin, Blood 2.6 g/dL (3.4-5.0); Albumin/Globulin Ratio 0.6 (0.8-1.8); Bilirubin, Total 1.3 mg/dL (0.1-1.0); Calcium, Blood 8.6 mg/dL (8.5-10.1); Globulin, Blood 4.1 g/dL (2.2-4.0); Potassium, Blood 3.8 mmol/L (3.5-5.5); Total Protein, Blood 6.7 g/dL (6.4-8.2)
[2025-02-18 07:32] VITALS: BP 115/61
[2025-02-18] MEDS ORDERED: Lactulose 20 GM/30 ML UDC PO SCH (09:00)
[2025-02-18] MEDS ORDERED: Ferrous Sulfate 325 MG Tab PO SCH (09:00)
[2025-02-18] MEDS ORDERED: Atorvastatin 10 MG Tab PO SCH (09:00)
[2025-02-18] MEDS ORDERED: Allopurinol 300 MG Tab PO SCH (09:00)
[2025-02-18] MEDS ORDERED: Atorvastatin 40 MG Tab PO SCH (09:00)
[2025-02-18] MEDS ORDERED: Acetaminophen 325 MG TABLET PO PRN (09:30)
[2025-02-18] MEDS ORDERED: Tiotropium Bromide 2.5 MCG/ACT MIST INHAL (10 ACT/4 GM) INH SCH (12:20)
[2025-02-18 16:04] VITALS: BP 128/64
--- NOTE | 2025-02-18 19:24 | NUR ---
SHIFT SUMMARY PATIENT A/OX2, MENTATION IMPROVING. CONTINUES WITH CONFUSION, IMPULSIVITY, AND FORGETFULNESS. SPOUSE, LUIGI, AT BEDSIDE THIS AFTERNOON ADN UPDATED ON PATIENT STATUS. 1 PERSON ASSIST, BED ALARM IN PLACE. CONTINUES WITH Q 4H NEURO CHECKS. NO OTHER CONCERNS AT THIS TIME, BEDSIDE SHIFT REPORT GIVEN TO PLANT SAFETY ENGINEER RN.
[2025-02-18 19:40] VITALS: BP 133/94
[2025-02-19 04:10] VITALS: BP 148/87
--- NOTE | 2025-02-19 04:35 | NUR ---
SHIFT SUMMARY PT A&Ox2. MORE ALERT AND LESS CONFUSED THAN PREVIOUS NIGHT. PT C/O BACK PAIN. HEAT PACK PROVIDED AND MEDICATED PER EMAR. RT AT BEDSIDE TO SET UP CPAP. PT ABLE TO USE T/O NIGHT BUT HAS BEEN AWAKE ON AND OFF. PT ON ENULOSE AND HAS HAD 1 LIQUID STOOL. VSS. BED ALARM ON D/T IMPULSIVENESS. BED IN LOWEST POSITION AND CALL LIGHT IN REACH.
[2025-02-19 05:26] LABS: BASOPHILS ABSOLUTE AUTO 0.01 K/mm3 (0.00-0.23); BASOPHILS PERCENT AUTO 1 % (0-2); EOSINOPHILS ABSOLUTE AUTO 0.07 K/mm3 (0.00-0.68); EOSINOPHILS PERCENT AUTO 3 % (0-6); Hematocrit 30.1 % (37.0-53.0); Hemoglobin 9.8 g/dL (13.5-17.5); IMMATURE GRAN ABSOLUTE AUTO 0.01 K/mm3 (0.00-0.10); IMMATURE GRAN PERCENT AUTO 1 % (0-1); LYMPHOCYTES ABSOLUTE AUTO 0.46 K/mm3 (0.84-5.20); LYMPHOCYTES PERCENT AUTO 22 % (21-46); MONOCYTES PERCENT AUTO 10 % (4-13); Mean Corpuscular HGB Conc 32.6 g/dL (31.5-36.5); Mean Corpuscular Volume 95 fL (80-100); Mean Platelet Volume 11.5 fL (9.1-12.4); NEUTROPHILS ABSOLUTE AUTO 1.32 K/mm3 (1.96-9.15); NEUTROPHILS PERCENT AUTO 64 % (41-73); RDW Coefficient Variation 19.9 % (11.7-14.2); RDW Standard Deviation 70.3 fL (35.1-46.3); Red Blood Cell Count 3.16 M/mm3 (4.30-5.90); White Blood Cell Count 2.07 K/mm3 (4.00-11.30)
[2025-02-19 05:43] LABS: Platelet Count 33 K/mm3 (150-400)
[2025-02-19] MEDS ORDERED: Omeprazole 20 MG CapCR PO SCH (06:00)
[2025-02-19 06:18] LABS: Albumin, Blood 2.8 g/dL (3.4-5.0); Albumin/Globulin Ratio 0.7 (0.8-1.8); Bilirubin, Total 1.9 mg/dL (0.1-1.0); Bun/Creatinine Ratio 15.1 (12.0-20.0); Calcium, Blood 8.6 mg/dL (8.5-10.1); Creatinine, Blood 0.99 mg/dL (0.60-1.20); Globulin, Blood 4.3 g/dL (2.2-4.0); Potassium, Blood 3.6 mmol/L (3.5-5.5); Total Protein, Blood 7.1 g/dL (6.4-8.2)
[2025-02-19 07:28] VITALS: BP 131/76
[2025-02-19] MEDS ORDERED: Potassium Chloride 10 Meq Tablet SA PO SCH (09:00)
[2025-02-19] MEDS ORDERED: Bumetanide 1 MG Tab PO SCH (09:00)
[2025-02-19] MEDS ORDERED: Montelukast Sodium 10 MG Tab PO SCH (09:00)
[2025-02-19] MEDS ORDERED: Lisinopril 5 MG Tab PO SCH (09:00)
[2025-02-19] MEDS ORDERED: Enulose10 GM/15 M PO (14:51)
[2025-02-19 15:02] VITALS: BP 117/76
--- NOTE | 2025-02-19 16:14 | NUR ---
DISCHARGE NOTE: PATIENT'S IV REMOVED, BELONGINGS COLLECTED, AND PREPARED FOR DISCHARGE. DISCHARGE PACKET GIVEN TO MEDICAL TRANSPORTER; NO SIGNS OR SYMPTOMS OF DISTRESS DURING DISCHARGE. NOTIFIED.
== END 2025-02-19 16:12 ==
LOC: ER 21:39 → MEDS 21:40 → ERHOLD 21:40 → MEDS 02-18 03:32
PROVIDERS: Family Medicine; Student in an Organized Health Care Education/Training Program; ADMIT Student in an Organized Health Care Education/Training Program
DX: K76.82 Hepatic encephalopathy (principal); D61.818 Other pancytopenia; I10 Essential (primary) hypertension; M10.9 Gout, unspecified; I85.00 Esophageal varices without bleeding; J45.909 Unspecified asthma, uncomplicated; G47.30 Sleep apnea, unspecified; R73.03 Prediabetes; E66.01 Morbid (severe) obesity due to excess calories; Z68.41 Body mass index [BMI] 40.0-44.9, adult; Z79.899 Other long term (current) drug therapy
CPT/HCPCS: 36415; 70450; 71045; 80053; 81001; 82140; 84484; 85025; 85610; 92526; 92610; 93005; 93010; 94640; 94660; 94664; 94762; 97116; 97162; 99285-25; A9270; G0378